=== PATIENT | male | born 1940 | race Caucasian/White ===

== ENCOUNTER 2017-09-16 17:11 | Inpatient (IN) | payer OTHER ==
--- OUTSIDE RECORDS SUMMARY | 2017-09-16 17:12 | XMS REPORT | Clinical Summary ---
:1940 Author Organization [facility] Address [address] [place] [address] Care Team Providers Name Role Phone Kamini Russ MD Primary Care Provider Allergies Not on File Current Medications Not on file Active Problems Not on file Encounters Date Type Specialty Care Team Description 10/02/2016 Hospital Encounter Radiology Jean Dugan Tremor MD 10/02/2016 Hospital Encounter Radiology Jean Dugan Tremor MD 10/02/2016 Ancillary Orders Radiology Jean Dugan Tremor MD 09/17/2016 Transcribe Orders Radiology Jean Dugan Tremor ( Primary Dx); Orthostatic hypotension after 09/15/2016 Social History Tobacco Use Types Packs/Day Years Used Date Never Assessed Sex Assigned at Date Recorded Not on file Last Filed Vital Signs Not on file Plan of Treatment Health Maintenance Due Date Last Done Comments SHINGRIX VACCINE (#1) 1989 ZOSTER VACCINE 1999 PNEUMOCOCCAL POLYSACCHARIDE VACCINE AGE 65 AND OVER 02/17/2004 PNEUMOCOCCAL-13 02/17/2004 INFLUENZA VACCINE 11/06/2017 Results NM Brain Spect W I 123 Datscan (10/02/2016 2:16 PM) Specimen Performing Laboratory [facility] [address] [place] [address] Narrative Procedure:NM BRAIN SPECT W I 123 DATSCAN Clinical History:R25.1 Tremorunspecified, Tremors, R25.1 TREMORS I95.1 ORTHESATINHYPERTENSION Technique: The patient was given 3 drops of Lugol's solution orally to protect the thyroid. The patient was then injected with 5 mCi of [id number] intravenously. SPECT imaging of the brain was performed approximately 4 hours later. Findings: There is moderately reduced uptake in the right putamen with borderline normal uptake in the left putamen. Uptake in the caudate is normal bilaterally. Impression: Abnormal DaTscan. 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 [facility]-[id number] Procedure Note [facility], Radiology Results Incoming - 10/02/2016 7:20 PM CDT Procedure: NM BRAIN SPECT W I 123 DATSCAN Clinical History: R25.1 Tremor unspecified, Tremors, R25.1 TREMORS I95.1 ORTHESATINHYPERTENSION Technique: The patient was given 3 drops of Lugol's solution orally to protect the thyroid. The patient was then injected with 5 mCi of [id number] intravenously. SPECT imaging of the brain was performed approximately 4 hours later. Findings: There is moderately reduced uptake in the right putamen with borderline normal uptake in the left putamen. Uptake in the caudate is normal bilaterally. Impression: Abnormal DaTscan. 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 [facility]-[id number] after 09/15/2016 Insurance Payer Benefit Plan / Group Subscriber ID Type Phone Address AETNA MEDICARE AETNA MEDICARE HMO/PPO [facility] xxxxxxxx O [phone] [id number]
[2017-09-16] MEDS ORDERED: IPRATROPIUM BROM 0.5MG/2.5ML ONE (18:19)
[2017-09-16] MEDS ORDERED: NA CHLORIDE 0.9% 50 ML IV ONE (18:20)
[2017-09-16] MEDS ORDERED: AZITHROMYCIN 500 MG/250 ML BAG ONE (18:20)
[2017-09-16] MEDS ORDERED: NA CHLORIDE 0.9% 1,000 ML ONE (18:20)
[2017-09-16] MEDS ORDERED: LEVALBUTEROL 1.25 MG/3 ML NEB ONE (18:20)
[2017-09-16] MEDS ORDERED: CEFTRIAXONE 1000 MG/VIAL ONE (18:20)
[2017-09-16 18:55] LABS: Absolute Lymphocytes (CBC) 0.6 K/uL (0.7-4.9); Absolute Monocytes 0.4 K/uL (0.1-1.3); Basophils % 0.2 % (0-1.3); Hematocrit 38.6 % (39.6-49.0); Lymphocytes % 5.6 % (15.3-44.8); MCH 31.7 pg (27.0-35.0); MCV 93.3 fL (80-100); MPV 7.9 fL (7.6-11.3); Monocytes % 3.8 % (3.3-12.3); Protime INR 1.33; RBC Red Blood Cell Count 4.14 M/uL (4.33-5.43)
--- NOTE | 2017-09-16 18:56 | ER ---
Nurse's Notes [facility] Name: Shaquille Mesa Age: 77 yrs Sex: Male : 1940 Arrival Date: 09/16/2017 Time: 17:17 Bed 28 Private MD: Diagnosis: Dyspnea;Chronic obstructive pulmonary disease with (acute) exacerbation;Weakness;Essential (primary) hypertension;Hypokalemia;Hypomagnesemia;Vomiting Presentation: 09/16 17:18 Presenting complaint: Patient states: Congestion and weakness, started today. mb3 Transition of care: [facility]. Onset of symptoms was September 16, 2017. Risk Assessment: Do you want to hurt yourself or someone else? Patient reports no desire to harm self or others. Initial Sepsis Screen: Does the patient meet any 2 criteria? No. Patient's initial sepsis screen is negative. Does the patient have a suspected source of infection? No. Patient's initial sepsis screen is negative. Care prior to arrival: IV initiated. 20 GA, in the left antecubital area, Glucose check: 126. 17:18 Method Of Arrival: EMS: [facility] mb3 17:18 Acuity: PRABHU 3 mb3 Triage Assessment: 17:26 General: Appears uncomfortable, ill, well groomed, Behavior is calm, cooperative, mb3 appropriate for age. Pain: Denies pain. EENT: Nares with drainage noted Reports nasal congestion since this morning nasal discharge that is watery. Neuro: Level of Consciousness is awake, alert, obeys commands, Oriented to person, place, time, situation, Appropriate for age Cane Flume Chute Operator are equal bilaterally Moves all extremities. Cardiovascular: Heart tones present Capillary refill < 3 seconds Patient's skin is warm and dry. Pulses are palpable in right radial artery, right dorsalis pedis artery, left radial artery and left dorsalis pedis artery. Respiratory: Reports cough that is productive, since this morning Airway is patent Respiratory effort is even, unlabored, Respiratory pattern is regular, symmetrical, Breath sounds are clear bilaterally. GI: Abdomen is flat, Bowel sounds present X 4 quads. Abd is soft and non tender. : Urine is clear. Historical: - Allergies: 17:23 No Known Allergies; mb3 - Home Meds: 17:56 atorvastatin 10 mg Oral tab 1 tab once daily [Active]; carbidopa-levodopa 25-250 mg mb3 oral tab 1 tab 4 times per day for Parkinsonism [Active]; clopidogrel 75 mg Oral tab 1 tab once daily [Active]; escitalopram oxalate 20 mg Oral tab 1 tab once daily [Active]; glimepiride 2 mg Oral tab 1 tab once daily [Active]; lamotrigine 100 mg Oral TbDL 1 tab 2 times per day [Active]; loratadine 10 mg Oral tab 1 tab once daily [Active]; metformin 1,000 mg Oral tab 1 tab 2 times per day [Active]; midodrine 5 mg oral tab 3 tabs 3 times per day [Active]; lactulose 10 gram/15 mL (15 mL) Oral soln 30 mL once daily [Active]; tamsulosin 0.4 mg Oral cp24 1 cap once daily [Active]; pramipexole 0.5 mg oral tab 1 tab 2 times per day [Active]; Super betga prostate w/vit D3, take 1 gelcap by mouth 2 times a day [Active]; bisacodyl 10 mg Rectal supp 1 suppository once daily as needed for Constipation [Active]; lactulose 10 gram/15 mL (15 mL) Oral soln 30 mL Every day as needed for constipation [Active]; lorazepam 0.5 mg Oral tab 1 tab 3 times per day for Anxiety [Active]; Tussin DM 10-100 mg/5 mL oral liqd 10 mL every 6 hours as needed for cough and congestion [Active]; - PMHx: 17:23 Asthma; Benign Prostatic Hypertrophy; Depression; Parkinsons; Diabetes - NIDDM; mb3 - Immunization history:: Adult Immunizations up to date. - Social history:: Smoking status: Patient/guardian denies using tobacco, the patient reports quitting approximately 3 years ago. - Ebola Screening: : Patient denies travel to an Ebola-affected area in the 21 days before illness onset No symptoms or risks identified at this time. - Family history:: not pertinent. Screenin:25 Abuse screen: Denies threats or abuse. Nutritional screening: No deficits noted. mb3 Tuberculosis screening: No symptoms or risk factors identified. Fall Risk No fall in past 12 months (0 pts). Secondary diagnosis (15 points) IV access (20 points). Ambulatory Aid- None/Bed Rest/Nurse Assist (0 pts). Gait- Impaired (20 pts.). Mental Status- Oriented to own ability (0 pts). Total Gurrola Fall Scale indicates High Risk Score (45 or more points). Fall prevention measures have been instituted. Side Rails Up X 2 Placed Close to Nursing Station Frequent Obs/Assessments Occuring As available patient and family educated on Fall Prevention Program and Strategies. Assessment: 17:50 Reassessment: see triage assessment. mb3 19:00 Reassessment: Patient and/or family updated on plan of care and expected duration. Pain mb3 level reassessed. Patient is alert, oriented x 3, equal unlabored respirations, skin warm/dry/pink. Patient states feeling better. Patient states symptoms have improved. 21:28 Reassessment: Patient appears in no apparent distress at this time. Patient and/or mb3 family updated on plan of care and expected duration. Pain level reassessed. Patient is alert, oriented x 3, equal unlabored respirations, skin warm/dry/pink. Patient states symptoms have improved. Vital Signs: 17:24 BP 181 / 104; Pulse 102; Resp 20; Temp 98.8; Pulse Ox 97% on R/A; Weight 102.06 kg; mb3 Height 6 ft. 4 in. (193.04 cm); Pain 0/10; 19:00 BP 161 / 82; Pulse 89; Resp 18; Pulse Ox 97% on R/A; mb3 21:22 BP 138 / 70; Pulse 83; Resp 18; Pulse Ox 97% on R/A; mb3 17:24 Body Mass Index 27.39 (102.06 kg, 193.04 cm) mb3 ED Course: 17:17 Patient arrived in ED. [facility] 17:17 Christopher Mejias, RN is Primary Nurse. mb3 17:21 Triage completed. mb3 17:25 Arm band placed on right wrist. mb3 17:26 Johan Nieto MD is Attending Physician. janusz 17:32 Patient has correct armband on for positive identification. Placed in gown. Bed in low mb3 position. Call light in reach. Side rails up X 1. cafeteria monitor on. Pulse ox on. NIBP on. 18:21 X-ray completed. Portable x-ray completed in exam room. Patient tolerated procedure ml well. 18:22 XRAY Chest (1 view) In Process Unspecified. EDMS 18:54 Chet Arriaga MD is Hospitalizing Provider. janusz 19:30 Notified ED physician of a critical lab result(s). total bili of 7.0 and mg of 1.4. fc 21:11 AMMONIA Sent. mb3 21:12 Hepatitis Panel Sent. mb3 21:26 No provider procedures requiring assistance completed. Patient admitted, IV remains in mb3 place. 21:56 [facility]. nj 21:57 CT completed. Patient tolerated procedure well. [facility] nj Administered Medications: 18:35 Drug: Xopenex 2.5 mg Route: Inhalation; mb3 21:12 Follow up: Response: No adverse reaction mb3 18:35 Drug: AtroVENT Aerosol 0.5 mg Route: Inhalation; mb3 21:12 Follow up: Response: No adverse reaction mb3 19:05 Drug: NS 0.9% 1000 ml Route: IV; Rate: 125 ml/hr; Site: left antecubital; mb3 21:13 Follow up: Response: No adverse reaction; IV Status: Infusion continued upon admission; mb3 IV Intake: 450ml 19:05 Drug: Rocephin - (cefTRIAXone) 1 grams Route: IVPB; Infused Over: 30 mins; Site: left mb3 antecubital; 21:13 Follow up: Response: No adverse reaction; IV Status: Completed infusion; IV Intake: [id number] 19:28 Drug: Zithromax 500 mg Route: IVPB; Infused Over: 1 hrs; Site: left antecubital; mb3 21:12 Follow up: Response: No adverse reaction; IV Status: Completed infusion; IV Intake: mb3 250ml 21:11 Drug: Zosyn 3.375 grams Route: IVPB; Infused Over: 60 mins; Site: left antecubital; mb3 Intake: 21:12 IV: 250ml; Total: 250ml. mb3 21:13 IV: 60ml; Total: 310ml. mb3 21:13 IV: 450ml; Total: 760ml. mb3 Outcome: 18:55 Decision to Hospitalize by Provider. janusz 21:26 Admitted to Tele accompanied by tech, via stretcher, room 423, with chart, Report mb3 called to Faye Fu RN 21:26 Condition: stable 21:26 Instructed on the need for admit. 23:18 Patient left the ED. mb3 Signatures: Dispatcher [employer] Johan Michelle MD MD cha Mickail, Joel, PA PA jmm Chretien, Felicia, RN RN fc Lopez, Melissa ml Jordan, Nathan nj Barnett, Mark, RN RN mb3
--- NOTE | 2017-09-16 18:57 | EDPHYS ---
Physician Documentation [facility] Name: Shaquille Mesa Age: 77 yrs Sex: Male : 1940 Arrival Date: 09/16/2017 Time: 17:17 Bed 28 Private MD: ED Physician Johan Nieto HPI: 09/16 18:07 This 77 yrs old Male presents to ER via EMS with complaints of Cough. janusz 18:07 The patient or guardian reports airway noise, cough. Onset: The symptoms/episode janusz began/occurred 2 day(s) ago. Severity of symptoms: At their worst the symptoms were mild, in the emergency department the symptoms are unchanged. Modifying factors: The symptoms are alleviated by nothing, the symptoms are aggravated by nothing. Associated signs and symptoms: Pertinent positives: nausea, rhinorrhea, sore throat. The patient has experienced similar episodes in the past, a few times. Historical: - Allergies: 17:23 No Known Allergies; mb3 - Home Meds: 17:56 atorvastatin 10 mg Oral tab 1 tab once daily [Active]; carbidopa-levodopa 25-250 mg mb3 oral tab 1 tab 4 times per day for Parkinsonism [Active]; clopidogrel 75 mg Oral tab 1 tab once daily [Active]; escitalopram oxalate 20 mg Oral tab 1 tab once daily [Active]; glimepiride 2 mg Oral tab 1 tab once daily [Active]; lamotrigine 100 mg Oral TbDL 1 tab 2 times per day [Active]; loratadine 10 mg Oral tab 1 tab once daily [Active]; metformin 1,000 mg Oral tab 1 tab 2 times per day [Active]; midodrine 5 mg oral tab 3 tabs 3 times per day [Active]; lactulose 10 gram/15 mL (15 mL) Oral soln 30 mL once daily [Active]; tamsulosin 0.4 mg Oral cp24 1 cap once daily [Active]; pramipexole 0.5 mg oral tab 1 tab 2 times per day [Active]; Super betga prostate w/vit D3, take 1 gelcap by mouth 2 times a day [Active]; bisacodyl 10 mg Rectal supp 1 suppository once daily as needed for Constipation [Active]; lactulose 10 gram/15 mL (15 mL) Oral soln 30 mL Every day as needed for constipation [Active]; lorazepam 0.5 mg Oral tab 1 tab 3 times per day for Anxiety [Active]; Tussin DM 10-100 mg/5 mL oral liqd 10 mL every 6 hours as needed for cough and congestion [Active]; - PMHx: 17:23 Asthma; Benign Prostatic Hypertrophy; Depression; Parkinsons; Diabetes - NIDDM; mb3 - Immunization history:: Adult Immunizations up to date. - Social history:: Smoking status: Patient/guardian denies using tobacco, the patient reports quitting approximately 3 years ago. - Ebola Screening: : Patient denies travel to an Ebola-affected area in the 21 days before illness onset No symptoms or risks identified at this time. - Family history:: not pertinent. ROS: 18:07 Constitutional: Negative for fever, chills, and weight loss, Eyes: Negative for injury, janusz pain, redness, and discharge, ENT: Negative for injury, pain, and discharge, Neck: Negative for injury, pain, and swelling, Cardiovascular: Negative for chest pain, palpitations, and edema, Abdomen/GI: Negative for abdominal pain, nausea, vomiting, diarrhea, and constipation, Back: Negative for injury and pain, : Negative for injury, bleeding, discharge, and swelling, MS/Extremity: Negative for injury and deformity, Skin: Negative for injury, rash, and discoloration, Neuro: Negative for headache, weakness, numbness, tingling, and seizure. 18:07 Respiratory: Positive for cough, wheezing, expiratory. Exam: 18:07 Constitutional: This is a well developed, well nourished patient who is awake, alert, janusz and in no acute distress. Head/Face: Normocephalic, atraumatic. Eyes: Pupils equal round and reactive to light, extra-ocular motions intact. Lids and lashes normal. Conjunctiva and sclera are non-icteric and not injected. Cornea within normal limits. Periorbital areas with no swelling, redness, or edema. ENT: Nares patent. No nasal discharge, no septal abnormalities noted. Tympanic membranes are normal and external auditory canals are clear. Oropharynx with no redness, swelling, or masses, exudates, or evidence of obstruction, uvula midline. Mucous membranes moist. Neck: Trachea midline, no thyromegaly or masses palpated, and no cervical lymphadenopathy. Supple, full range of motion without nuchal rigidity, or vertebral point tenderness. No Meningismus. Chest/axilla: Normal chest wall appearance and motion. Nontender with no deformity. No lesions are appreciated. Cardiovascular: Regular rate and rhythm with a normal S1 and S2. No gallops, murmurs, or rubs. Normal PMI, no JVD. No pulse deficits. Abdomen/GI: Soft, non-tender, with normal bowel sounds. No distension or tympany. No guarding or rebound. No evidence of tenderness throughout. Back: No spinal tenderness. No costovertebral tenderness. Full range of motion. Male : Normal genitalia with no discharge or lesions. Skin: Warm, dry with normal turgor. Normal color with no rashes, no lesions, and no evidence of cellulitis. 18:07 Respiratory: the patient does not display signs of respiratory distress, Respirations: no acute changes, Breath sounds: decreased breath sounds, rhonchi, wheezing: expiratory Vital Signs: 17:24 BP 181 / 104; Pulse 102; Resp 20; Temp 98.8; Pulse Ox 97% on R/A; Weight 102.06 kg; 3 Height 6 ft. 4 in. (193.04 cm); Pain 0/10; 19:00 BP 161 / 82; Pulse 89; Resp 18; Pulse Ox 97% on R/A; mb3 21:22 BP 138 / 70; Pulse 83; Resp 18; Pulse Ox 97% on R/A; mb3 17:24 Body Mass Index 27.39 (102.06 kg, 193.04 cm) [facility] MDM: 17:26 Patient medically screened. [facility] 18:11 Data reviewed: vital signs, nurses notes, lab test result(s), EKG, radiologic studies. [facility] 09/16 18:06 Order name: Basic Metabolic Panel; Complete Time: 19:34 [facility] 09/16 18:06 Order name: BNP; Complete Time: 19:16 [facility] 09/16 18:06 Order name: CBC with Diff; Complete Time: 19:31 [facility] 09/16 18:06 Order name: Ckmb; Complete Time: 19:34 [facility] 09/16 18:06 Order name: CPK; Complete Time: 19:34 [facility] 09/16 18:06 Order name: LFT's; Complete Time: 19:34 [facility] 09/16 18:06 Order name: Magnesium; Complete Time: 19:34 [facility] 09/16 18:06 Order name: PT-INR; Complete Time: 19:16 [facility] 09/16 18:06 Order name: Ptt, Activated; Complete Time: 19:16 [facility] 09/16 18:06 Order name: Troponin (emerg Dept Use Only); Complete Time: 19:16 [facility] 09/16 18:06 Order name: Blood Culture Adult (2) [facility] 09/16 18:06 Order name: Lipase; Complete Time: 19:34 [facility] 09/16 18:06 Order name: Procalcitonin; Complete Time: 19:34 [facility] 09/16 18:06 Order name: Flu; Complete Time: 19:16 [facility] 09/16 18:06 Order name: XRAY Chest (1 view) [facility] 09/16 18:06 Order name: Urine Culture [facility] 09/16 18:57 Order name: Urine Dipstick--Ancillary (enter results); Complete Time: 19:16 09/16 18:57 Order name: CBC Smear Scan; Complete Time: 19:31 [facility] 09/16 19:33 Order name: US Abdomen Limited [facility] 09/16 19:33 Order name: CT Abd/Pelvis - W/Contrast [facility] 09/16 19:33 Order name: Hepatitis Panel [facility] 09/16 19:34 Order name: AMMONIA [facility] 09/16 21:14 Order name: US [facility] 09/16 21:35 Order name: Ammonia [facility] 09/16 22:35 Order name: CT [facility] 09/16 22:58 Order name: Glucose, Ancillary Testing [facility] 09/16 18:06 Order name: EKG; Complete Time: 18:06 [facility] 09/16 18:06 Order name: Cardiac monitoring; Complete Time: 19:31 [facility] 09/16 18:06 Order name: EKG - Nurse/Tech; Complete Time: 19:31 [facility] 09/16 18:06 Order name: IV Saline Lock; Complete Time: 19:31 [facility] 09/16 18:06 Order name: Labs collected and sent; Complete Time: 19:31 [facility] 09/16 18:06 Order name: O2 Per Protocol; Complete Time: 19:31 [facility] 09/16 18:06 Order name: O2 Sat Monitoring; Complete Time: 19:30 [facility] 09/16 18:06 Order name: Urine Dipstick-Ancillary (obtain specimen); Complete Time: 19:30 [facility] Administered Medications: 18:35 Drug: Xopenex 2.5 mg Route: Inhalation; mb3 21:12 Follow up: Response: No adverse reaction mb3 18:35 Drug: AtroVENT Aerosol 0.5 mg Route: Inhalation; mb3 21:12 Follow up: Response: No adverse reaction mb3 19:05 Drug: NS 0.9% 1000 ml Route: IV; Rate: 125 ml/hr; Site: left antecubital; mb3 21:13 Follow up: Response: No adverse reaction; IV Status: Infusion continued upon admission; mb3 IV Intake: 450ml 19:05 Drug: Rocephin - (cefTRIAXone) 1 grams Route: IVPB; Infused Over: 30 mins; Site: left mb3 antecubital; 21:13 Follow up: Response: No adverse reaction; IV Status: Completed infusion; IV Intake: [id number] 19:28 Drug: Zithromax 500 mg Route: IVPB; Infused Over: 1 hrs; Site: left antecubital; mb3 21:12 Follow up: Response: No adverse reaction; IV Status: Completed infusion; IV Intake: mb3 250ml 21:11 Drug: Zosyn 3.375 grams Route: IVPB; Infused Over: 60 mins; Site: left antecubital; mb3 Disposition: 09/16/17 18:55 Hospitalization ordered by Chet Arriaga for Observation. Preliminary diagnosis are Dyspnea, Chronic obstructive pulmonary disease with (acute) exacerbation, Weakness, Essential (primary) hypertension, Hypokalemia, Hypomagnesemia, Vomiting. - Bed requested for Telemetry/MedSurg (observation). - Status is Observation. mb3 - Condition is Fair. - Problem is new. - Symptoms have improved. UTI on Admission? No Signatures: Dispatcher [employer] Amber Small RN RN dw Anderson, Corey, MD MD cha Barnett, Mark RN RN mb3 Corrections: (The following items were deleted from the chart) 19:18 18:55 Hospitalization Ordered by Chet Arriaga MD for Observation. Preliminary janusz diagnosis is Dyspnea; Chronic obstructive pulmonary disease with (acute) exacerbation; Weakness. Bed requested for Telemetry/MedSurg (observation). Status is Observation. Condition is Fair. Problem is new. Symptoms have improved. UTI on Admission? No. janusz 19:35 19:18 09/16/2017 18:55 Hospitalization Ordered by Chet Arriaga MD for Observation. janusz Preliminary diagnosis is Dyspnea; Chronic obstructive pulmonary disease with (acute) exacerbation; Weakness; Essential (primary) hypertension; Hypokalemia. Bed requested for Telemetry/MedSurg (observation). Status is Observation. Condition is Fair. Problem is new. Symptoms have improved. UTI on Admission? No. janusz 19:36 19:35 09/16/2017 18:55 Hospitalization Ordered by Chet Arriaga MD for Observation. janusz Preliminary diagnosis is Dyspnea; Chronic obstructive pulmonary disease with (acute) exacerbation; Weakness; Essential (primary) hypertension; Hypokalemia; Hypomagnesemia. Bed requested for Telemetry/MedSurg (observation). Status is Observation. Condition is Fair. Problem is new. Symptoms have improved. UTI on Admission? No. [facility] 19:37 19:36 09/16/2017 18:55 Hospitalization Ordered by Chet Arriaga MD for Observation. dw Preliminary diagnosis is Dyspnea; Chronic obstructive pulmonary disease with (acute) exacerbation; Weakness; Essential (primary) hypertension; Hypokalemia; Hypomagnesemia; Vomiting. Bed requested for Telemetry/MedSurg (observation). Status is Observation. Condition is Fair. Problem is new. Symptoms have improved. UTI on Admission? No. [facility] 23:18 19:37 09/16/2017 18:55 Hospitalization Ordered by Chet Arriaga MD for Observation. mb3 Preliminary diagnosis is Dyspnea; Chronic obstructive pulmonary disease with (acute) exacerbation; Weakness; Essential (primary) hypertension; Hypokalemia; Hypomagnesemia; Vomiting. Bed requested for Telemetry/MedSurg (observation). Status is Observation. Condition is Fair. Problem is new. Symptoms have improved. UTI on Admission? No. dw
[2017-09-16] MEDS ORDERED: D50W 25 GM/50 ML SYRINGE IV PRN (18:58)
[2017-09-16] MEDS ORDERED: GLUCAGON 1 MG/VIAL IM PRN (18:58)
[2017-09-16 19:00] LABS: Urine Blood NEGATIVE (NEG); Urine Glucose NEGATIVE (NEG); Urine Protein 2+ (NEG); Urine Specific Gravity 1.025 (1.005-1.030); Urine pH 5.5 (5.0-7.0)
[2017-09-16 19:04] LABS: Bicarbonate 22 mEq/L (21-31); Glucose Level 132 mg/dL (65-120); Lipase 21 U/L (22-51); Potassium 3.4 mEq/L (3.6-5.0); Sodium Level 136 mEq/L (135-145)
[2017-09-16 19:12] LABS: ALT/SGPT 28 IU/L (10-60); AST/SGOT 208 IU/L (10-42); Albumin 4.3 g/dL (3.2-5.5); Alkaline Phosphatase 107 IU/L (42-121); BUN Blood Urea Nitrogen 16 mg/dL (6-20); CKMB Creatine Kinase MB 3.5 ng/ml (0.3-4.0); Creatine Phosphokinase 125 IU/L (22-269); Protein, Total 7.3 g/dL (6.0-8.3)
[2017-09-16 19:20] LABS: Blood Morphology Comment NOT SEEN (NOT SEEN); Platelet Estimate ADEQ; Urine White Blood Cell Casts OK
[2017-09-16 19:31] LABS: Magnesium 1.4 mg/dL (1.8-2.5)
--- NOTE | 2017-09-16 19:46 | P.HP ---
Certification for Inpatient Patient admitted to: Inpatient With expected LOS: >2 Midnights Practitioner: I am a practitioner with admitting privileges, knowledge of patient current condition, hospital course, and medical plan of care. Services: Services provided to patient in accordance with Admission requirements found in Title 42 Section 412.3 of the Code of Federal Regulations Patient History Date of Service: 09/16/17 Reason for admission: nuasea and vomiting History of Present Illness: Mr Mesa is a 77 years old male with history of DM II, Parkinson's disease, Asthma, BPH who start complainin of productive cough since 2 weeks ago with clear secretions. He denied SOB, fever or chills. This morning he start with nausea and vomiting. He also had mild diffuse abdominal pain. In ER The patient was not in distress, afebrile. Lab work was remarkable for leukocytosis with elevated procalcitonin. Bilirubin was significantly elevated 7.0 with direct bili predominance, AST elevated as well. Allergies No Known Allergies Allergy (Verified 03/11/14 08:55) Home Medications: Clopidogrel Bisulfate [Clopidogrel] 75 mg PO DAILY 03/11/14 Escitalopram [Lexapro*] 20 mg PO DAILY 03/11/14 Lamotrigine [Lamictal] 100 mg PO BID 03/11/14 Acetaminophen with Codeine [Acetaminophen-Cod #3 Tablet] 1 each PO Q6HP PRN Atorvastatin Calcium [Lipitor*] 10 mg PO BEDTIME 08/31/16 Lactulose 20 gm PO DAILYPRN PRN 08/31/16 Loratadine [Claritin*] 10 mg PO DAILY 08/31/16 Metformin HCl [Metformin HCl ER] 1,000 mg PO BID 08/31/16 Metoprolol Tartrate [Lopressor*] 25 mg PO BEDTIME 08/31/16 Midodrine HCl 10 mg PO TID 08/31/16 Polyethyl Gly 3350 [Glycolax*] 17 gm PO SEECOM 08/31/16 Primidone [Mysoline *] 150 mg PO BID 08/31/16 Super Beta Prostate W/Vit D3 1 cap PO BID 08/31/16 Tamsulosin HCl [Flomax] 0.4 mg PO BEDTIME 08/31/16 Carbidopa/Levodopa 25-100 [Sinemet 25-100*] 1 tab PO DAILY tab 09/01/16 Topiramate [Topamax*] 25 mg PO BEDTIME #30 tab 09/01/16 - Past Medical/Surgical History Diabetic: Yes -: orthostatic hypotension -: recurrent syncope Past Surgical History: Reviewed- Non-Contributory - Family History Father -: GI disease - Social History Smoking Status: Former smoker Alcohol use: No CD- Drugs: No Caffeine use: Yes Place of Residence: Skilled Nursing Review of Systems 10-point ROS is otherwise unremarkable Physical Examination - Physical Exam General: Alert, In no apparent distress HEENT: Atraumatic, PERRLA, Mucous membr. moist/pink, EOMI, Sclerae nonicteric Neck: Supple, 2+ carotid pulse no bruit, No LAD, Without JVD or thyroid abnormality Respiratory: Clear to auscultation bilaterally, Diminished Cardiovascular: Regular rate/rhythm, Normal S1 S2 Gastrointestinal: Normal bowel sounds, No tenderness Musculoskeletal: No tenderness Integumentary: No rashes Neurological: Normal speech, Normal strength at 5/5 x4 extr, Normal tone, Normal affect, Other (uper extremity with resting tremors.) Lymphatics: No axilla or inguinal lymphadenopathy - Studies Laboratory Data (last 24 hrs) 09/16/17 18:35: PT 15.7 H, INR 1.33, APTT 27.0 09/16/17 18:35: WBC 11.1 H, Hgb 13.1 L, Hct 38.6 L, Plt Count 127 L 09/16/17 18:35: B-Natriuretic Peptide 164 H 09/16/17 18:35: Sodium 136, Potassium 3.4 L, BUN 16, Creatinine 0.70, Glucose 132 H, Magnesium 1.4 L*, Total Bilirubin 7.0 H*, AST 208 H, ALT 28, Alkaline Phosphatase 107, Lipase 21 L Microbiology Data (last 24 hrs): 09/16/17 18:43 Nasopharnyx Influenza Type A Antigen Screen - Final 09/16/17 18:43 Nasopharnyx Influenza Type B Antigen Screen - Final Assessment and Plan - Problems (Diagnosis) (1) Sepsis Current Visit: Yes Status: Acute Qualifiers: Sepsis type: sepsis due to unspecified organism Qualified Code(s): A41.9 - Sepsis, unspecified organism (2) Abnormal liver enzymes Current Visit: Yes Status: Acute (3) Diabetes mellitus Current Visit: Yes Status: Acute Qualifiers: Diabetes mellitus type: type 2 Diabetes mellitus fci insulin use: without fci use Diabetes mellitus complication status: with unspecified complications Qualified Code(s): E11.8 - Type 2 diabetes mellitus with unspecified complications (4) Hypomagnesemia Current Visit: Yes Status: Acute - Plan Mr Mesa will be admitted to the hospital due to sepsis, possible secondary to biliary tree obstruction. He has leukocytosis, elevated procalcitonin and is tachycardic. Abd US is pending. Will start empiric Cipro and Flagyl treatment. Keep NPO, eventually consult surgery and GI specialist, depending on US results. - Advance Directives Does patient have a Living Will: Yes Does patient have a Durable POA for Healthcare: Yes - Code Status/Comfort Care Code Status Assessed: Yes Code Status: Full Code
--- NOTE | 2017-09-16 20:01 | RAD REPORT ---
EXAM DESCRIPTION: RAD - Chest Single View - 09/16/2017 6:21 pm CLINICAL HISTORY: Cough and congestion, weakness COMPARISON: January 2017 TECHNIQUE: AP portable chest image was obtained 1817 hours . FINDINGS: Lungs are clear. Lung markings are similar to prior imaging. Heart and vasculature are nor mal. No measurable pleural effusion and no pneumothorax. No gross bony abnormality seen. No acute aor tic findings suspected. IMPRESSION: No acute cardiopulmonary process. No significant interval change.
[2017-09-16] MEDS ORDERED: INSULIN -REGULAR HUMAN 50 UNIT/0.5 ML ML SQ SCH (21:00)
[2017-09-16] MEDS ORDERED: PIPER/TAZO/NS 3.375gm 3.375 GM/100 ML BAG ONE (21:02)
--- NOTE | 2017-09-16 21:14 | RAD REPORT ---
EXAM DESCRIPTION: US - Abdomen Exam Limited - 09/16/2017 8:29 pm CLINICAL HISTORY: Abdominal pain COMPARISON: CT study October 2015 FINDINGS: Gallbladder is distended. Small stones and sludge are identifiable. Wall appears mildly th ickened as it well. No pericholecystic fluid. No common duct stone or biliary tree dilatation identified. IMPRESSION: Stones and sludge are identifiable with mild gallbladder wall thickening. No biliary tree abnormality.
[2017-09-16] MEDS ORDERED: ACETAMINOPHEN 500 MG TAB PO PRN (22:29)
[2017-09-16] MEDS ORDERED: IPRATROPIUM BROM 0.5MG/2.5ML NEB PRN (22:29)
[2017-09-16] MEDS ORDERED: ALBUTEROL 2.5 MG/3 ML NEB SOL NEB PRN (22:29)
[2017-09-16] MEDS ORDERED: ONDANSETRON 4 MG/2 ML VIAL IV PRN (22:29)
--- NOTE | 2017-09-16 22:34 | RAD REPORT ---
EXAM DESCRIPTION: CT - Abdomen Pelvis W Contrast - 09/16/2017 9:59 pm CLINICAL HISTORY: Abdominal pain, irritable bowel history, lymphocytic leukemia history COMPARISON: CT study October 2015 TECHNIQUE: Biphasic, helical CT imaging of the abdomen and pelvis was performed following 100 ml non -ionic IV contrast. Oral contrast was given. All CT scans are performed using dose optimization technique as appropriate and may include automated exposure control or mA/KV adjustment according to patient size. FINDINGS: Fibrotic stranding or atelectasis in each base. No infiltrate or pleural effusion. No jia cardial effusion. Liver shows borderline fatty infiltration. Liver capsule is mildly nodular. No focal liver lesion. No acute spleen pancreas process. Numerous small gallstones are present. Gallbladder wall is borderline . No biliary tree dilatation. Symmetric renal function is seen with no hydronephrosis or suspicious renal mass. No pyelonephritis o r acute renal parenchymal process. No gastric dilatation or wall thickening. No small bowel abnormality. The appendix is unremarkable. Large amount of stool dilates the rectum. Tortuous and redundant sigmoid colon extends well into the upper right abdomen. Ye of the transverse and descending colon are mildly prominent but clear of a ny measurable stool content. No free air, free fluid or inflammatory stranding. No mass or bulky lymphadenopathy. Fat filled umbi lical hernia is present with no acute component. The urinary bladder is without significant finding. No adrenal abnormality. Significantly enlarged prostate gland is present. Disc and bony degenerative changes are present. IMPRESSION: No obstruction, free air or surgically emergent finding. Large amount of stool dilates the rectum. Ye of the transverse and descending colon are mildly pro minent and could indicate a nonspecific, mild colitis. Marked prostatic enlargement. No urinary bladder wall thickening and no urine retention. Cholelithiasis. Gallbladder wall is upper normal. Cholecystitis is not not excluded but needs matchin g clinical presentation. No biliary tree dilatation.
[2017-09-16] MEDS: INSULIN -REGULAR HUMAN 50 UNIT/0.5 ML ML SQ SCH (23:02)
[2017-09-16] MEDS: NA CHLORIDE 0.9% 1,000 ML IV SCH (23:26)
[2017-09-17 00:34] VITALS: BMI 27.4
[2017-09-17] MEDS: METRONIDAZOLE 500mg IVPB 500 MG/100 ML BAG IV SCH ×2 (00:56→09:50)
[2017-09-17] MEDS ORDERED: CIPROFLOXACIN 400mg IV 400 MG/200 ML BAG IV SCH (01:00)
[2017-09-17] MEDS ORDERED: Magnesium Sulfate 2gm IVPB 2 G/50 ML BAG IV ONE (01:54)
[2017-09-17] MEDS: KCL 20 MEQ/100 mL IVPB 20 MEQ/100 ML BAG IV SCH ×2 (02:50→06:03)
[2017-09-17] MEDS: INSULIN -REGULAR HUMAN 50 UNIT/0.5 ML ML SQ SCH ×4 (06:00→21:00)
[2017-09-17 06:30] LABS: Absolute Lymphocytes (CBC) 0.4 K/uL (0.7-4.9); Absolute Monocytes 0.2 K/uL (0.1-1.3); Absolute Neutrophil 7.6 K/uL (1.8-8.0); Eosinophils % 0.1 % (0-4.4); Hematocrit 35.7 % (39.6-49.0); Lymphocytes % 4.9 % (15.3-44.8); MCH 32.1 pg (27.0-35.0); MCV 93.5 fL (80-100); MPV 7.8 fL (7.6-11.3); Monocytes % 2.9 % (3.3-12.3); RBC Red Blood Cell Count 3.82 M/uL (4.33-5.43)
[2017-09-17 06:47] LABS: ALT/SGPT 147 IU/L (10-60); AST/SGOT 129 IU/L (10-42); Albumin 3.6 g/dL (3.2-5.5); Alkaline Phosphatase 89 IU/L (42-121); BUN Blood Urea Nitrogen 17 mg/dL (6-20); Bicarbonate 24 mEq/L (21-31); Glucose Level 118 mg/dL (65-120); Sodium Level 141 mEq/L (135-145)
[2017-09-17 06:48] LABS: Bilirubin Total 5.5 mg/dL (0.3-1.2)
[2017-09-17] MEDS: NA CHLORIDE 0.9% 1,000 ML IV SCH ×2 (08:29→17:19)
[2017-09-17 08:51] LABS: Platelet Estimate DECR; Toxic Granulation PRESENT
[2017-09-17 08:52] LABS: Blood Morphology Comment NOT SEEN (NOT SEEN)
[2017-09-17] MEDS ORDERED: PRAMIPEXOLE DI HCL 0.5 MG PO SCH (09:28)
[2017-09-17] MEDS ORDERED: LORAZEPAM 0.5 MG TABLET PO PRN (09:28)
[2017-09-17] MEDS ORDERED: guaiFENesin 100 MG/5 ML UCUP PO PRN (09:28)
[2017-09-17] MEDS ORDERED: BISACODYL 10 MG RECTAL SUPP PR PRN (09:28)
[2017-09-17] MEDS: ACYCLOVIR TOP SCH (09:28)
[2017-09-17] MEDS ORDERED: GLUCAGON 1 MG/VIAL IM PRN (09:33)
[2017-09-17] MEDS ORDERED: D50W 25 GM/50 ML SYRINGE IV PRN (09:33)
[2017-09-17] MEDS: CLOPIDOGREL 75 MG TABLET PO SCH (10:07)
[2017-09-17] MEDS: LORATADINE 10 MG TAB PO SCH (10:07)
[2017-09-17] MEDS: ESCITALOPRAM 20 MG TAB PO SCH (10:07)
[2017-09-17] MEDS: lamoTRIgine 100 MG TAB PO SCH ×2 (10:31→21:17)
[2017-09-17] MEDS: FLUDROCORTISONE 0.1 MG TAB PO SCH (10:32)
[2017-09-17] MEDS ORDERED: CEFEPIME 2 GM in NA CHLORIDE 0.9% 100 ML IV SCH (11:00)
[2017-09-17] MEDS ORDERED: LACTULOSE 20 GM/30 ML UCUP PO PRN (11:00)
--- NOTE | 2017-09-17 11:30 | CON ---
Date of Consultation: 09/17/2017 Brief History Of Present Illness: The patient is a 77-year-old male, who presents with cou gh and weakness and fatigue beginning approximately 2 days ago. He states that he had decreased appe tite, decreased strength, and just general malaise and fatigue, which got worse to the point where he could no longer eat. He states he lost all of his appetite. He as such was transferred to the hosp [facility] with the above-stated complaints. He denies any abdominal pain now throughout this issue. He h as had some mild nausea, sore throat, and has had multiple episodes before in the past beginning 5 ye ars ago and he has had multiple similar episodes. He states that they are usually resolved with a ort hospitalization, some IV fluids and some antibiotics, and he generally gets better. He does have a history of gallstones and has not had any recommendation for surgery with this above-stated histor y. Past Medical History: Significant for asthma, BPH, depression, Parkinson, diabetes. Allergies: NO KNOWN DRUG ALLERGIES. Medications: At home include atorvastatin, carbidopa/levodopa, Plavix, escitalopram, glimepiride, la motrigine, loratadine, metformin, midodrine, lactulose, tamsulosin, pramipexole, Super Beta Prostate, , lactulose. Social History: He quit tobacco 3 years ago. He denies recreational drug use. Review of Systems: A 10-point review of systems other than HPI, denies. Physical Examination: Vital Signs: At the time of my examination, his BMI is 27.5. His vital signs are blood pressure 114 /62, pulse is 90, respiratory rate 20, temperature 98.8. General: He is awake, alert, and oriented x3. Psychiatric: He is appropriate and conversive. He answers questions appropriately and has good insi ght into his medical history. HEENT: Normocephalic. His sclerae are anicteric. His mucous membranes moist. His oropharynx is cl ear. Neck: Supple. No JVD. Chest: Normal expansion and excursion. Abdomen: Soft, nontender, and nondistended. No rebound. No guarding. No focal peritonitis. He almeida s an umbilical hernia, which is reducible, nontender. Extremities: No clubbing, cyanosis, or edema. Skin: Warm and dry. Laboratory Data: Reveals a white blood count 8.2, hemoglobin 12.2, hematocrit 35.7, platelet count i s 93. His bands are 14. His sodium 141, potassium 3.0, chloride 104, carbon dioxide 24, BUN 17, cre atinine 0.7, glucose is 118. His total bilirubin is 5.5. His magnesium on admission was 1.4. His d irect component was 4.0, AST is 129, ALT is 147. His alk phos is 89. Procalcitonin was 13.59 on adm ission. BNP 164. UA showed 2+ protein, 3+ ketones, otherwise negative. He had imaging performed, w hich included a chest x-ray which was officially read as no acute cardiopulmonary processes. He had an abdominal ultrasound performed as well, which was officially read as stones and sludge are identif iable with mild gallbladder wall thickening. No biliary tree abnormality. No pericholecystic fluid. No common duct stone or biliary tree abnormality identified. Abdomen and pelvis CT was also perfor med, which was officially read as no obstruction or free air or surgically emergent finding, large am ount of stool dilated the rectum. The transverse and descending colons are mildly prominent, could i ndicate nonspecific mild colitis. Mild prostatic enlargement. No bowel wall thickening or urine ret ention. Cholelithiasis. Gallbladder wall is upper normal. Cholecystitis is not excluded, but needs matching clinical presentation. No biliary tree abnormality. Assessment And Plan: 1.This is a 77-year-old male, who presents with weakness and fatigue and malaise. He does not have any abdominal pain and as such seems unlikely to have a diagnosis of cholecystitis despite his LFTs b eing elevated. This could be multifactorial or perhaps this could be multifactorial. 2.I do not find that the patient has a surgically emergent finding at this time and with his history of gallstones, I recommend medical treatment at this time to see if he improves; however, given his clinical picture, he does not have indications for surgery at this time; however, should he developed worse abnormalities or new onset symptoms of abdominal pain, did indicate a cholecystitis type pictu re or choledocholithiasis, I would recommend MRCP/ERCP, prior surgical intervention should new abnorm alities emerge. However, I recommend continue medical management as described above. Thank you for this interesting consult. ROGER/IRINA Voice ID: [id number] Report ID: [id number]
[2017-09-17] MEDS: GENTAMICIN IV SCH ×2 (12:06→17:18)
[2017-09-17] MEDS: NA CHLORIDE 0.9% IV SCH ×2 (12:06→17:18)
[2017-09-17] MEDS: CEFEPIME/SWI 2gm 2 GM/20 ML SYR IV SCH ×2 (12:06→17:19)
[2017-09-17] MEDS: CARBIDOPA/LEVODOPA 25/100 TAB PO SCH ×3 (13:19→21:17)
[2017-09-17] MEDS: MIDODRINE HCL 5 MG TABLET PO SCH ×2 (13:20→21:17)
[2017-09-17] MEDS: CARBIDOPA/LEVODOPA 25/250 TAB PO SCH ×3 (13:23→21:17)
[2017-09-17] MEDS ORDERED: POTASSIUM CL SA 10 MEQ TAB PO ONE (15:00)
--- NOTE | 2017-09-17 15:21 | PN ---
Date of Progress Note: 09/17/2017 Subjective: The patient seen and examined, chart reviewed, and case discussed with RN and Dr. Rosio fisher and Dr. Coffman. The patient denies any abdominal pain. He has some nausea, but no vomiting. Sadiq osorio is doing better. Review of Systems: Negative except as above. Medications: Reviewed. Physical Examination: Vital Signs: Temperature 98.8, heart rate 90, blood pressure 114/62, O2 saturation 95% on room air. General: Awake, alert, oriented x3, some mild distress. Elderly male, ill-appearing. CV: S1 and S2. No murmurs. Regular rate and rhythm. Peripheral pulses present. Respiratory: Moving air well bilaterally. No wheezing. Gastrointestinal: Abdomen is soft, nontender, nondistended. Positive bowel sounds. No guarding or rigidity. Extremities: No clubbing, cyanosis or edema. Neurologic: Nonfocal. Laboratory Data: Sodium 141, potassium 3, chloride 104, CO2 24, BUN 17, creatinine 0.71, glucose 118 , calcium 8.7, total bilirubin 5.5, AST 129, ALT 147, alkaline phosphatase 89. WBC 8.2, H and H 12.2 , 35.7, platelets 93, neutrophils 92.1, bands 14. Blood culture preliminarily show gram-negative tunde s. Urine cultures pending. Assessment And Plan: A 77-year-old male with: 1.Sepsis secondary to gram-negative bacteremia. We will continue with IV antibiotics. We will tren d procalcitonin. Continue IV fluids. Follow up on ID and sensitivity and urine cultures. 2.Gram-negative bacteremia, gram-negative rods. ID and sensitivities pending. We will continue wit h IV antibiotics and followup. 3.Elevated liver enzymes, improving. 4.Elevated total bilirubin. The patient does have gallstones with some sludge, however, no biliary tract dilatation. Spoke with Dr. Kevin and Dr. Coffman. No surgical intervention at this time. We will obtain MRCP and GI consultation. 5.Diabetes mellitus type 2 with long-term use of insulin with hyperglycemia. We will continue slidi ng scale insulin and Accu-Chek. 6.Hypomagnesemia. We will replace and monitor. 7.Hypokalemia. We will replace and monitor. 8.Thrombocytopenia. 9.Gastrointestinal and deep venous thrombosis prophylaxis, PPI and SCDs due to thrombocytopenia. Plan: Follow up with the MRCP result and GI recommendations. UQAN Voice ID: [id number] Report ID: [id number]
--- NOTE | 2017-09-17 15:45 | RAD REPORT ---
EXAM DESCRIPTION: MRIAbdomen (Gallbladder) CLINICAL HISTORY: Abdominal pain COMPARISON: CT 09/16/2017, ultrasound 09/16/2017 FINDINGS: The intrahepatic and extrahepatic biliary trees do not appear significantly dilated. No co mmon bile duct stone is seen. Cholelithiasis is present with mild thickening of the gallbladder wall suspected. No bulky adenopathy, free fluid or abscess in the abdomen. No bowel obstruction suspected. IMPRESSION: Cholelithiasis with mild gallbladder wall thickening. No intrahepatic or extrahepatic biliary tree dilatation suspected. No common bile duct stone suspecte d.
[2017-09-17] MEDS: PRAMIPEXOLE 0.25 MG TAB PO SCH (21:17)
[2017-09-17] MEDS: ATORVASTATIN 10 MG TAB PO SCH (21:17)
[2017-09-17] MEDS: TAMSULOSIN 0.4 MG SR CAP PO SCH (21:17)
[2017-09-18] MEDS: GENTAMICIN IV SCH ×3 (01:02→16:34)
[2017-09-18] MEDS: NA CHLORIDE 0.9% IV SCH ×3 (01:02→16:34)
[2017-09-18] MEDS: CEFEPIME/SWI 2gm 2 GM/20 ML SYR IV SCH ×3 (01:03→18:23)
[2017-09-18] MEDS: NA CHLORIDE 0.9% 1,000 ML IV SCH ×2 (05:07→14:36)
[2017-09-18 06:36] LABS: Absolute Lymphocytes (CBC) 0.5 K/uL (0.7-4.9); Absolute Monocytes 0.2 K/uL (0.1-1.3); Basophils % 0.2 % (0-1.3); Eosinophils % 0.9 % (0-4.4); Hematocrit 34.6 % (39.6-49.0); Lymphocytes % 7.5 % (15.3-44.8); MCH 31.7 pg (27.0-35.0); MCV 93.1 fL (80-100); MPV 8.9 fL (7.6-11.3); Monocytes % 2.9 % (3.3-12.3); RBC Red Blood Cell Count 3.71 M/uL (4.33-5.43)
[2017-09-18] MEDS: INSULIN -REGULAR HUMAN 50 UNIT/0.5 ML ML SQ SCH ×4 (07:30→21:00)
[2017-09-18 07:54] LABS: ALT/SGPT 20 IU/L (10-60); AST/SGOT 59 IU/L (10-42); Albumin 3.3 g/dL (3.2-5.5); Alkaline Phosphatase 78 IU/L (42-121); BUN Blood Urea Nitrogen 15 mg/dL (6-20); Bicarbonate 27 mEq/L (21-31); Bilirubin Total 3.5 mg/dL (0.3-1.2); Ferritin 209.8 ng/ml (23.9-336.2); Glucose Level 116 mg/dL (65-120); Magnesium 1.7 mg/dL (1.8-2.5); Potassium 3.4 mEq/L (3.6-5.0); Protein, Total 5.5 g/dL (6.0-8.3); Sodium Level 141 mEq/L (135-145)
[2017-09-18] MEDS ORDERED: Magnesium Sulfate 2gm IVPB 2 G/50 ML BAG IV ONE (08:07)
[2017-09-18] MEDS ORDERED: POTASSIUM 25 MEQ EFFERV TAB PO ONE ×2 (08:10→21:13)
[2017-09-18 08:56] LABS: BUN Blood Urea Nitrogen 15 mg/dL (6-20); Bicarbonate 28 mEq/L (21-31); Glucose Level 128 mg/dL (65-120); Potassium 3.3 mEq/L (3.6-5.0); Sodium Level 140 mEq/L (135-145)
[2017-09-18] MEDS: CARBIDOPA/LEVODOPA 25/100 TAB PO SCH ×4 (09:00→21:50)
[2017-09-18] MEDS: MIDODRINE HCL 5 MG TABLET PO SCH ×3 (09:00→21:52)
[2017-09-18] MEDS: GLIMEPIRIDE 2 MG TABLET PO SCH (09:00)
[2017-09-18] MEDS: CARBIDOPA/LEVODOPA 25/250 TAB PO SCH ×4 (09:00→21:50)
[2017-09-18] MEDS: LORATADINE 10 MG TAB PO SCH (09:00)
[2017-09-18] MEDS: lamoTRIgine 100 MG TAB PO SCH ×2 (09:00→21:51)
[2017-09-18] MEDS: ACYCLOVIR TOP SCH (09:00)
[2017-09-18] MEDS: FLUDROCORTISONE 0.1 MG TAB PO SCH (09:00)
[2017-09-18] MEDS ORDERED: POLYETHYL GLY 3350 17 GM/DOSE PO SCH (09:00)
[2017-09-18] MEDS: ESCITALOPRAM 20 MG TAB PO SCH (09:00)
[2017-09-18] MEDS: CLOPIDOGREL 75 MG TABLET PO SCH (09:02)
[2017-09-18] MEDS ORDERED: MAGNESIUM SULFATE 1 gm IVPB 1 GM/100 ML BAG IV ONE (09:05)
[2017-09-18] MEDS: PRAMIPEXOLE 0.25 MG TAB PO SCH ×2 (09:26→21:49)
--- NOTE | 2017-09-18 17:49 | PN ---
Date of Progress Note: 09/18/2017 Subjective: The patient is seen and examined. Chart reviewed and case discussed with RN and Dr. Dk dejesus, Dr. Pires as well as Dr. Coffman. The patient states he is doing better. He denies any pain. Review of Systems: Negative except as above. Medications: Reviewed. Physical Examination: Vital Signs: T-max 99.6, heart rate 78, blood pressure 160/78, respirations 18, O2 98% on room air. General: Awake, alert, oriented x3, in some mild distress. Elderly male. CV: S1, S2. Regular rate and rhythm. Peripheral pulses present. Respiratory: Clear to auscultation bilaterally. No wheezing. No stridor. Gastrointestinal: Abdomen is soft, nontender, nondistended. Positive bowel sounds. No guarding or rigidity. Extremities: No clubbing, cyanosis, or edema. No calf tenderness. Neuro: Cranial nerves 2 through 12 intact grossly. No focal neurological deficits. Speech is gabrielle l. Laboratory Data: Sodium 140, potassium 3.3, chloride 104, CO2 20, BUN 15, creatinine 0.7, glucose 12 8, calcium 8.6. WBC 6.7, H and H 11.8 and 34.6, platelets 88, neutrophils 88%. Hepatitis panel pend ing. Blood cultures growing gram-negative rods, ID and sensitivity pending. Urine culture showed mi xed luis. MRCP shows cholelithiasis with mild gallbladder wall thickening. No intrahepatic or extr ahepatic biliary tree dilatation suspected. No common bile duct stones suspected. Assessment And Plan: A 77-year-old male with: 1.Sepsis secondary to gram-negative bacteremia. Continue antibiotics. Follow up on ID and sensitiv ity. Continue IV fluids. Sepsis is resolving. 2.Gram-negative bacteremia. Cultures showing gram-negative rods in the blood. Follow up with final blood cultures. 3.Elevated liver enzymes, improving. 4.Elevated total bilirubin. MRCP is negative. No intervention planned by GI or Surgery at this fernando e. The patient is pain free. 5.Hemochromatosis. Discussed with Dr. Pires. Ferritin level was less than 500. The patient is stab le. Has periodic phlebotomy. 6.Diabetes mellitus type 2 with long-term use of insulin with hyperglycemia. We will continue slidi ng scale insulin and Accu-Cheks. 7.Hypomagnesemia. We will replace and monitor. 8.Hypokalemia. We will replace and monitor. 9.Thrombocytopenia, likely due to liver disease. 10.Gastrointestinal and deep venous thrombosis prophylaxis with PPI and SCDs, due to thrombocytopeni a. 11.History of chronic lymphocytic leukemia, in remission. Has been treated. Follows with Dr. Pirse. 12.History of traumatic brain injury. SA/MODL Voice ID: [id number] Report ID: [id number]
[2017-09-18] MEDS: TAMSULOSIN 0.4 MG SR CAP PO SCH (21:49)
[2017-09-18] MEDS: ATORVASTATIN 10 MG TAB PO SCH (21:50)
[2017-09-19] MEDS: CEFEPIME/SWI 2gm 2 GM/20 ML SYR IV SCH ×2 (00:52→08:43)
[2017-09-19] MEDS: NA CHLORIDE 0.9% 1,000 ML IV SCH ×2 (03:24→10:29)
[2017-09-19] MEDS: NA CHLORIDE 0.9% IV SCH (03:24)
[2017-09-19] MEDS: GENTAMICIN IV SCH (03:24)
[2017-09-19 04:24] LABS: Absolute Lymphocytes (CBC) 0.7 K/uL (0.7-4.9); Absolute Monocytes 0.3 K/uL (0.1-1.3); Absolute Neutrophil 5.3 K/uL (1.8-8.0); Basophils % 0.5 % (0-1.3); Eosinophils % 0.6 % (0-4.4); Hematocrit 33.2 % (39.6-49.0); Lymphocytes % 10.7 % (15.3-44.8); MCH 32.3 pg (27.0-35.0); MCV 92.6 fL (80-100); MPV 8.6 fL (7.6-11.3); Monocytes % 4.3 % (3.3-12.3); RBC Red Blood Cell Count 3.59 M/uL (4.33-5.43)
[2017-09-19 04:33] LABS: ALT/SGPT 12 IU/L (10-60); AST/SGOT 37 IU/L (10-42); Albumin 3.4 g/dL (3.2-5.5); Alkaline Phosphatase 78 IU/L (42-121); BUN Blood Urea Nitrogen 14 mg/dL (6-20); Bicarbonate 29 mEq/L (21-31); Bilirubin Total 2.7 mg/dL (0.3-1.2); Glucose Level 102 mg/dL (65-120); Magnesium 1.8 mg/dL (1.8-2.5); Potassium 3.5 mEq/L (3.6-5.0); Protein, Total 6.1 g/dL (6.0-8.3); Sodium Level 139 mEq/L (135-145)
[2017-09-19] MEDS: INSULIN -REGULAR HUMAN 50 UNIT/0.5 ML ML SQ SCH ×2 (07:30→11:30)
[2017-09-19] MEDS: ESCITALOPRAM 20 MG TAB PO SCH (08:41)
[2017-09-19] MEDS: GLIMEPIRIDE 2 MG TABLET PO SCH (08:41)
[2017-09-19] MEDS: CLOPIDOGREL 75 MG TABLET PO SCH (08:41)
[2017-09-19] MEDS: CARBIDOPA/LEVODOPA 25/100 TAB PO SCH ×2 (08:42→13:29)
[2017-09-19] MEDS: LORATADINE 10 MG TAB PO SCH (08:42)
[2017-09-19] MEDS: PRAMIPEXOLE 0.25 MG TAB PO SCH (08:42)
[2017-09-19] MEDS: CARBIDOPA/LEVODOPA 25/250 TAB PO SCH ×2 (08:42→13:29)
[2017-09-19] MEDS: FLUDROCORTISONE 0.1 MG TAB PO SCH (08:43)
[2017-09-19] MEDS: MIDODRINE HCL 5 MG TABLET PO SCH ×2 (08:43→13:29)
[2017-09-19] MEDS: lamoTRIgine 100 MG TAB PO SCH (08:43)
[2017-09-19] MEDS: ACYCLOVIR TOP SCH (08:44)
[2017-09-19] MEDS ORDERED: POTASSIUM 25 MEQ EFFERV TAB PO ONE (09:00)
[2017-09-19] MEDS ORDERED: MAGNESIUM SULFATE 1 gm IVPB 1 GM/100 ML BAG IV ONE (09:00)
[2017-09-19 09:27] VITALS: O2SAT 91
[2017-09-19 12:21] VITALS: BP 162/88; TEMP 98
[2017-09-19] MEDS ORDERED: Gentamicin Inj 140 MG in NA CHLORIDE 0.9% 100 ML IV SCH (15:00)
--- NOTE | 2017-09-20 03:54 | DS ---
Date of Discharge: 09/19/2017 Consultants: 1.Tc Kevin MD, General Surgery. 2.Kervin Coffman MD, General Surgery. 3.Chris Nevarez MD, GI. Admitting Diagnoses: 1.Sepsis. 2.Abnormal liver enzymes. 3.Diabetes mellitus type 2 with long-term use of insulin. 4.Hypomagnesemia. Discharge Diagnoses: 1.Sepsis, resolved. 2.Gram-negative E coli bacteremia. 3.Elevated liver enzymes, trending down. 4.Elevated total bilirubin, trending down. No obstruction on MRCP. 5.Hemochromatosis, ferritin level less than 500. Continue periodic phlebotomy with Oncology. 6.Diabetes mellitus type 2 with long-term use of insulin with hyperglycemia. 7.Hypomagnesemia, replaced. 8.Hypokalemia, replaced. 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 10.History of chronic lymphocytic leukemia, in remission. Follows with Dr. Hidalgo. 11.History of traumatic brain injury. 12.Parkinson disease. Hospital Course: The patient is a 77-year-old male who came in due to nausea and vomiting. He was f ound to have sepsis. Procalcitonin and liver enzymes were elevated. He was found to be septic. He was started on IV fluids, sepsis bundle, and IV antibiotics. Cultures were obtained. Blood cultures grew out E. coli. His urine culture grew out Enterococcus faecalis, which was vancomycin sensitive. CT scan of the abdomen and pelvis showed possible mild colitis, marked prostatic enlargement, erick lithiasis. Gallbladder, upper normal. Abdominal ultrasound was done, which showed mild gallbladder wall thickening, stones, and sludge. No biliary tree dilatation. Chest x-ray was negative. His UA was also negative. Dr. Kevin with General Surgery was consulted. He did not recommend any surgery at this time. The patient was pain free. Dr. Coffman was covering for Dr. Kevin while he was out o f town the following day. The patient's condition improved. His white count normalized. Procalcito brayden was trending down. His liver enzymes and bilirubin trended down as well. GI was consulted for p ossible biliary obstruction. MRCP was done, which was negative for any biliary tree obstruction or d ilatation. No common bile duct stones were suspected. It did show some cholelithiasis with mild gal lbladder wall thickening. The patient does have a history of hemochromatosis. Ferritin level was ch ecked which was less than 500. I spoke with Dr. Hidalgo, who stated that the patient will be having periodic phlebotomies. The patient was also seen by Dr. Nevarez of GI, who did not recommend any intervention such as ERCP. The patient did well. Over the course of the hospital stay, his sep sis resolved. He was able to ambulate well using a walker. The patient was then cleared for dischar ge from consultants standpoint and was sent back to [facility]. Discharge Medications: As per medication reconciliation list. Condition: Stable. Activity: Fall precautions. Diet: Diabetic. Followup: Follow up with PCP in 2-3 days. Follow up with oncologist, Dr. Hidalgo, as schedul ed. Follow up with GI, Dr. Nevarez, in 4 weeks. Return to ER for worsening condition. Discharge Physical Examination: General: Awake, alert, oriented, no acute distress. CV: S1, S2. No murmurs. Respiratory: Moving air well bilaterally. Abdomen: Soft, nontender, nondistended. Positive bowel sounds. Extremities: No clubbing, cyanosis, edema. Neurologic: Nonfocal. Total time spent discharging the patient was 37 minutes. /IRINA Voice ID: [id number] Report ID: [id number]
[2017-09-20 13:54] LABS: HBsAG Nonreactive
[2017-09-20 13:55] LABS: Hepatitis A IgM Antibody Nonreactive
== END 2017-09-19 15:02 | DRG 872 ==
LOC: ER 17:11 → ERHOLD 18:55 → 4TH 21:28 → OBSVTOIN 09-17 13:35
PROVIDERS: ADMIT Internal Medicine; ATTEND Internal Medicine
DX: A41.9 Sepsis, unspecified organism (principal); C91.11 Chronic lymphocytic leukemia of B-cell type in remission; A41.51 Sepsis due to Escherichia coli [E. coli]; R74.8 Abnormal levels of other serum enzymes; E83.119 Hemochromatosis, unspecified; E83.42 Hypomagnesemia; E11.65 Type 2 diabetes mellitus with hyperglycemia; E87.6 Hypokalemia; D69.6 Thrombocytopenia, unspecified; Z87.820 Personal history of traumatic brain injury; G20 Parkinson's disease; N40.0 Benign prostatic hyperplasia without lower urinary tract symptoms; Z79.4 Long term (current) use of insulin; K80.20 Calculus of gallbladder without cholecystitis without obstruction; K52.9 Noninfective gastroenteritis and colitis, unspecified
CPT/HCPCS: 36415; 71045; 74177; 74181; 76705; 80048; 80053; 80074; 80076; 80170; 81003; 82140; 82550; 82553; 82728; 82962; 83690; 83735; 83880; 84132; 84145; 84484; 85025; 85610; 85730; 87040; 87077; 87086; 87088; 87186; 87205; 87804; 94760; 96365; 96375; 99285; G0378; J0456; J0692; J0744; J1580; J2543; J3475; J7030; Q9967

== ENCOUNTER 2017-12-10 11:59 | Inpatient (IN) | payer OTHER ==
--- OUTSIDE RECORDS SUMMARY | 2017-12-10 12:01 | XMS REPORT | Clinical Summary ---
:1940 Author Organization [facility] Address [address] [place] [id number] Care Team Providers Name Role Phone Kamini Russ MD Primary Care Provider Allergies Not on File Current Medications Not on file Active Problems Not on file Social History Tobacco Use Types Packs/Day Years Used Date Never Assessed Sex Assigned at Date Recorded Not on file Last Filed Vital Signs Not on file Plan of Treatment Health Maintenance Due Date Last Done Comments SHINGRIX VACCINE (#1) 1989 ZOSTER VACCINE 1999 PNEUMOCOCCAL POLYSACCHARIDE VACCINE AGE 65 AND OVER 02/17/2004 PNEUMOCOCCAL-13 02/17/2004 INFLUENZA VACCINE 11/06/2017 Results Not on fileafter 12/09/2016 Insurance Payer Benefit Plan / Group Subscriber ID Type Phone Address A[employer]NA MEDICARE AETNA MEDICARE HMO/PPO [facility] xxxxxxxx HMO Home: [address] [phone] [id number]
[2017-12-10] MEDS ORDERED: NA CHLORIDE 0.9% 1,000 ML ONE ×3 (12:32→14:53)
--- NOTE | 2017-12-10 13:05 | RAD REPORT ---
EXAM DESCRIPTION: CT - Head Brain Wo Cont - 12/10/2017 12:57 pm CLINICAL HISTORY: Weakness, transient alteration of awareness COMPARISON: April 2016. TECHNIQUE: Axial 5 mm thick images of the head were obtained without IV contrast. All CT scans are performed using dose optimization technique as appropriate and may include automated exposure control or mA/KV adjustment according to patient size. FINDINGS: No intracranial hemorrhage, mass, edema or shift of mid-line structures. No acute infarcti on changes seen. Patient has atrophy and chronic ischemic change. Ventricles are prominent in size. S ize is similar to April 2016 study. Mastoid air cells and visualized portions of the paranasal sinuses are clear. No acute bony findings. IMPRESSION: No acute intracranial finding. Atrophy and chronic ischemic changes match the prior study. Chronic ischemic changes can mask nonhemorrhagic acute infarction. MR brain followup can be obtained if there is ongoing concern for acute ischemia.
[2017-12-10 13:06] LABS: Protime INR 1.34
[2017-12-10 13:18] LABS: ALT/SGPT 22 U/L (12-78); AST/SGOT 16 U/L (15-37); Albumin 3.9 g/dL (3.4-5.0); Alkaline Phosphatase 60 U/L (45-117); BUN Blood Urea Nitrogen 23 mg/dL (7-18); Bicarbonate 20 mmol/L (21-32); Bilirubin Direct 0.6 mg/dL (0-0.2); Bilirubin Total 2.1 mg/dL (0.2-1.0); CKMB Creatine Kinase MB < 1.0 ng/mL (0.3-3.6); Creatine Phosphokinase 57 U/L (39-308); Glucose Level 187 mg/dL (74-106); NT PRO-BNP 732 pg/mL (<450); Protein, Total 7.1 g/dL (6.4-8.2); Sodium Level 136 mmol/L (136-145); Troponin (Emerg Dept Use Only) < 0.02 ng/mL (0.0-0.045)
[2017-12-10 13:20] LABS: Absolute Lymphocytes (CBC) 0.3 K/uL (0.7-4.9); Absolute Monocytes 0.1 K/uL (0.1-1.3); Absolute Neutrophil 5.1 K/uL (1.8-8.0); Basophils % 0.1 % (0-1.3); Hematocrit 36.7 % (39.6-49.0); Lymphocytes % 5.8 % (15.3-44.8); MCH 33.7 pg (27.0-35.0); MCV 96.8 fL (80-100); MPV 8.7 fL (7.6-11.3); Monocytes % 2.2 % (3.3-12.3); RBC Red Blood Cell Count 3.79 M/uL (4.33-5.43)
[2017-12-10 13:31] LABS: Magnesium 1.3 mg/dL (1.8-2.4)
[2017-12-10 13:39] LABS: Blood Morphology Comment NOT SEEN (NOT SEEN); Platelet Estimate ADEQ
[2017-12-10] MEDS ORDERED: Magnesium Sulfate 2gm IVPB 2 G/50 ML BAG IV ONE (14:08)
[2017-12-10] MEDS ORDERED: CEFTRIAXONE/SWI 1gm 1 GM/10 ML SYR ONE (14:08)
--- NOTE | 2017-12-10 14:09 | RAD REPORT ---
EXAM DESCRIPTION: RAD - Chest Single View - 12/10/2017 1:03 pm CLINICAL HISTORY: Weakness, shortness of breath COMPARISON: September 16 TECHNIQUE: AP portable chest image was obtained 1255 hour . FINDINGS: Lung volumes are low. This accentuates lung markings. Lung base atelectasis is present. Co nsolidation or focal infiltrate is doubtful. No suspicious mass and no failure or volume overload. He art and vasculature are normal. No measurable pleural effusion and no pneumothorax. No gross bony abn ormality seen. No acute aortic findings suspected. IMPRESSION: Shallow inspiration portable exam showing lung base atelectasis. No focal infiltrate suspected and no failure or volume overload.
[2017-12-10 14:24] LABS: Urine Bacteria >50 /HPF (NONE SEEN); Urine Culture Reflex Order REFLEXED
[2017-12-10 14:24] LABS: Urine Blood 2+ (NEG); Urine Glucose NEGATIVE (NEG); Urine Protein 2+ (NEG); Urine Specific Gravity 1.015 (1.005-1.030)
[2017-12-10] MEDS ORDERED: POTASSIUM 25 MEQ EFFERV TAB ONE (14:46)
--- NOTE | 2017-12-10 14:48 | EDPHYS ---
Physician Documentation [facility] Name: Shaquille Mesa Age: 77 yrs Sex: Male : 1940 Arrival Date: 12/10/2017 Time: 12:06 Bed 28 Private MD: ED Physician Johan Nieto HPI: 12/10 14:00 This 77 yrs old Male presents to ER via EMS with complaints of General pm1 Weakness. 14:00 The patient presents to the emergency department with weakness of the entire body, pm1 generalized weakness. Onset: The symptoms/episode began/occurred last night. Context: occurred at a alf or assisted living facility. Associated signs and symptoms: Pertinent positives: altered mental status, possible fever. Severity of symptoms: in the emergency department the symptoms have improved Pain is currently a 0 / 10. Patient's baseline: Neuro: alert and fully oriented, Motor: no deficits, Ambulation: walks without assistance. Current symptoms: Currently, the patient is not experiencing any symptoms. The patient has experienced similar episodes in the past, a few times, and the symptoms today are exactly the same, to previous Urosepsis per sister who has power of state attorney . The patient has not recently seen a physician, the patient's primary care provider is Dr. gonzales. 14:00 Frequent urination per sister when she was visiting him yesterday. pm1 Historical: - Allergies: 12:10 No Known Allergies; dm5 - Home Meds: 13:22 atorvastatin 10 mg Oral tab 1 tab once daily [Active]; clopidogrel 75 mg Oral tab 1 tab ss once daily [Active]; carbidopa-levodopa 25-250 mg Oral tab 1 tab 4 times per day for Parkinsonism [Active]; escitalopram oxalate 20 mg Oral tab 1 tab once daily [Active]; metformin 1,000 mg Oral tab 1 tab 2 times per day [Active]; glimepiride 2 mg Oral tab 1 tab once daily [Active]; lamotrigine 100 mg Oral TbDL 1 tab 2 times per day [Active]; bisacodyl 10 mg Rectal supp 1 suppository once daily as needed for constipation [Active]; lactulose 10 gram/15 mL (15 mL) Oral soln 30 mL once daily [Active]; lactulose 10 gram/15 mL (15 mL) Oral soln 30 mL Every day as needed for constipation [Active]; lorazepam 0.5 mg Oral tab 1 tab 3 times per day for Anxiety [Active]; tamsulosin 0.4 mg Oral cp24 1 cap once daily [Active]; midodrine 5 mg Oral tab 3 tabs 3 times per day [Active]; loratadine 10 mg Oral tab 1 tab once daily [Active]; - PMHx: 12:10 Asthma; Benign Prostatic Hypertrophy; Depression; Diabetes - NIDDM; epilepsy; 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 - Social history:: Smoking status: Patient/guardian denies using tobacco. - Ebola Screening: : Patient negative for fever greater than or equal to 101.5 degrees Fahrenheit, and additional compatible Ebola Virus Disease symptoms Patient denies exposure to infectious person Patient denies travel to an Ebola-affected area in the 21 days before illness onset No symptoms or risks identified at this time. ROS: 14:00 Constitutional: Negative for fever, chills, and weight loss, Eyes: Negative for injury, pm1 pain, redness, and discharge, ENT: Negative for injury, pain, and discharge, Neck: Negative for injury, pain, and swelling, Cardiovascular: Negative for chest pain, palpitations, and edema, Respiratory: Negative for shortness of breath, cough, wheezing, and pleuritic chest pain, Abdomen/GI: Negative for abdominal pain, nausea, vomiting, diarrhea, and constipation, Back: Negative for injury and pain, : Negative for injury, bleeding, discharge, and swelling, MS/Extremity: Negative for injury and deformity, Skin: Negative for injury, rash, and discoloration. 14:00 Neuro: Positive for altered mental status, generalized weakness, Negative for numbness, tingling. Exam: 14:00 Constitutional: This is a well developed, well nourished patient who is awake, alert, pm1 and in no acute distress. Head/Face: Normocephalic, atraumatic. Eyes: Pupils equal round and reactive to light, extra-ocular motions intact. Lids and lashes normal. Conjunctiva and sclera are non-icteric and not injected. Cornea within normal limits. Periorbital areas with no swelling, redness, or edema. ENT: Nares patent. No nasal discharge, no septal abnormalities noted. Tympanic membranes are normal and external auditory canals are clear. Oropharynx with no redness, swelling, or masses, exudates, or evidence of obstruction, uvula midline. Mucous membranes moist. Neck: Trachea midline, no thyromegaly or masses palpated, and no cervical lymphadenopathy. Supple, full range of motion without nuchal rigidity, or vertebral point tenderness. No Meningismus. Chest/axilla: Normal chest wall appearance and motion. Nontender with no deformity. No lesions are appreciated. Cardiovascular: Regular rate and rhythm with a normal S1 and S2. No gallops, murmurs, or rubs. No pulse deficits. Respiratory: Lungs have equal breath sounds bilaterally, clear to auscultation and percussion. No rales, rhonchi or wheezes noted. No increased work of breathing, no retractions or nasal flaring. Abdomen/GI: Soft, non-tender, with normal bowel sounds. No distension or tympany. No guarding or rebound. No evidence of tenderness throughout. Skin: Warm, dry with normal turgor. Normal color with no rashes, no lesions, and no evidence of cellulitis. MS/ Extremity: Pulses equal, no cyanosis. Neurovascular intact. Full, normal range of motion. 14:00 Neuro: Orientation: is normal, Motor: moves all fours, Sensation: is normal, no obvious gross deficits. Vital Signs: 12:10 BP 96 / 53; Pulse 107; Resp 20; Temp 98(O); Pulse Ox 96% on R/A; dm5 12:30 BP 112 / 61; Pulse 106; Resp 20; Pulse Ox 95% on R/A; aj 14:38 BP 100 / 64; Pulse 100; Resp 16; Pulse Ox 98% on R/A; aj 16:38 BP 110 / 67; Pulse 101; Resp 18; Pulse Ox 100% on R/A; aj 17:36 BP 129 / 78; Pulse 106; Resp 20; Pulse Ox 99% on R/A; aj MDM: 12:12 Patient medically screened. pm1 14:44 Data reviewed: vital signs. Data interpreted: Pulse oximetry: on room air is 98 %. pm1 Interpretation: normal. Counseling: I had a detailed discussion with the patient and/or guardian regarding: the historical points, exam findings, and any diagnostic results supporting the discharge/admit diagnosis, lab results, radiology results, the need for further work-up and treatment in the hospital, to return to the emergency department if symptoms worsen or persist or if there are any questions or concerns that arise at home. 12/10 12:22 Order name: Basic Metabolic Panel; Complete Time: 13:52 pm1 12/10 12:22 Order name: CBC with Diff; Complete Time: 13:52 pm1 12/10 12:22 Order name: Ckmb; Complete Time: 13:52 pm1 12/10 12:22 Order name: CPK; Complete Time: 13:52 pm1 12/10 12:22 Order name: LFT's; Complete Time: 13:52 pm1 12/10 12:22 Order name: Magnesium; Complete Time: 13:52 pm1 12/10 12:22 Order name: NT PRO-BNP; Complete Time: 13:52 pm1 12/10 12:22 Order name: PT-INR; Complete Time: 13:52 pm1 12/10 12:22 Order name: Ptt, Activated; Complete Time: 13:52 pm1 12/10 12:22 Order name: Troponin (emerg Dept Use Only); Complete Time: 13:52 pm1 12/10 12:22 Order name: Urine Microscopic Only; Complete Time: 14:28 pm1 12/10 12:22 Order name: Blood Culture Adult (2) pm1 12/10 12:22 Order name: Procalcitonin; Complete Time: 13:52 pm1 12/10 12:22 Order name: Lactate; Complete Time: 13:52 pm1 12/10 12:19 Order name: CT Head Brain wo Cont; Complete Time: 13:52 pm1 12/10 12:22 Order name: XRAY Chest (1 view); Complete Time: 14:28 pm1 12/10 12:22 Order name: EKG; Complete Time: 12:23 pm1 12/10 12:22 Order name: Cardiac monitoring; Complete Time: 13:20 pm1 12/10 13:39 Order name: Manual Differential; Complete Time: 13:52 EDMS 12/10 14:19 Order name: Urine Dipstick--Ancillary (enter results) eb 12/10 14:24 Order name: Lactate; Complete Time: 16:26 aj 12/10 14:27 Order name: Urine Culture EDMS 12/10 17:51 Order name: Thyroid Stimulating Hormone; Complete Time: 17:55 EDMS 12/10 12:22 Order name: EKG - Nurse/Tech; Complete Time: 13:27 pm1 12/10 12:22 Order name: IV Saline Lock; Complete Time: 12:49 pm1 12/10 12:22 Order name: Labs collected and sent; Complete Time: 12:49 pm1 12/10 12:22 Order name: O2 Per Protocol; Complete Time: 12:50 pm1 12/10 12:22 Order name: O2 Sat Monitoring; Complete Time: 12:50 pm1 12/10 12:22 Order name: Urine Dipstick-Ancillary (obtain specimen); Complete Time: 15:47 pm1 Administered Medications: 13:28 Drug: NS 0.9% 1000 ml Route: IV; Rate: 1000 ml; Site: right forearm; aj 14:31 Follow up: Response: No adverse reaction; IV Status: Completed infusion; IV Intake: aj 1000ml 14:10 Drug: Rocephin 1 grams Route: IV; Rate: calculated rate; Site: right forearm; aj 14:31 Follow up: Response: No adverse reaction; IV Status: Completed infusion; IV Intake: 25mlaj 14:10 Drug: Magnesium Sulfate 2 grams Route: IVPB; Infused Over: 2 hrs; Site: right forearm; aj 15:46 Follow up: Response: No adverse reaction; IV Status: Completed infusion; IV Intake: 50mlaj 14:25 Drug: NS 0.9% 1000 ml Route: IV; Rate: 1000 ml; Site: right forearm; aj 15:45 Follow up: Response: No adverse reaction; IV Status: Completed infusion; IV Intake: aj 1000ml 14:45 Drug: Potassium Effervescent Tablet 50 mEq Route: PO; aj 15:24 Follow up: Response: No adverse reaction aj 15:10 Drug: vancoMYCIN 1 grams Route: IVPB; Infused Over: 2 hrs; Site: right forearm; aj 15:23 Drug: NS 0.9% 1000 ml Route: IV; Rate: 1000 ml; Site: right forearm; aj Disposition: 12/11 07:28 Co-signature as Attending Physician, Johan ESTRADA I agree with the assessment and janusz plan of care. Disposition: 12/10/17 14:47 Hospitalization ordered by Alla Ying for Inpatient Admission. Preliminary diagnosis is Urosepsis. - Bed requested for Telemetry/MedSurg (Inpatient). - Status is Inpatient Admission. aj - Condition is Stable. - Problem is new. - Symptoms have improved. UTI on Admission? Yes Signatures: Dispatcher [employer] Susana Call, Charito Kennedy RN, RN RN aj Anderson, Corey, MD MD cha Smirch, Shelby, RN RN ss Marinas, Patrick, SCRUB WHEEL OPERATOR SCRUB WHEEL OPERATOR pm1 Jayla Isabel Corrections: (The following items were deleted from the chart) 12/10 14:49 14:47 Hospitalization Ordered by Alla Ying MD for Inpatient Admission. Preliminary pm1 diagnosis is Urosepsis. Bed requested for Intensive Care Unit. Status is Inpatient Admission. Condition is Stable. Problem is new. Symptoms have improved. UTI on Admission? Yes. pm1 16:51 14:49 12/10/2017 14:47 Hospitalization Ordered by Alla Ying MD for Inpatient eb Admission. Preliminary diagnosis is Urosepsis. Bed requested for Telemetry/MedSurg (Inpatient). Status is Inpatient Admission. Condition is Stable. Problem is new. Symptoms have improved. UTI on Admission? Yes. pm1 18:00 16:51 12/10/2017 14:47 Hospitalization Ordered by Alla Ying MD for Inpatient aj Admission. Preliminary diagnosis is Urosepsis. Bed requested for Telemetry/MedSurg (Inpatient). Status is Inpatient Admission. Condition is Stable. Problem is new. Symptoms have improved. UTI on Admission? Yes. eb
--- NOTE | 2017-12-10 14:48 | ER ---
Nurse's Notes [facility] Name: Shaquille Mesa Age: 77 yrs Sex: Male : 1940 Arrival Date: 12/10/2017 Time: 12:06 Bed 28 Private MD: Diagnosis: Urosepsis Presentation: 12/10 12:06 Presenting complaint: EMS states: general weakness and AMS started last night but seems dm5 to be getting worse. EmS reports diaphoresis and difficulty urinating. Pt has a history of UTIs. Transition of care: patient was not received from another setting of care. Onset of symptoms was December 10, 2017. Risk Assessment: Do you want to hurt yourself or someone else? Patient reports no desire to harm self or others. Initial Sepsis Screen: Does the patient meet any 2 criteria? RR > 20 per min. Altered Mental Status. Yes Does the patient have a suspected source of infection? Yes: Dysuria/Frequency/Urgency/UTI. Care prior to arrival: 2 missed IV attempts. 12:06 Method Of Arrival: EMS: [facility] dm5 12:06 Acuity: PRABHU 3 dm5 Triage Assessment: 12:10 General: Appears in no apparent distress. Behavior is calm, cooperative. Pain: Denies dm5 pain. Historical: - Allergies: 12:10 No Known Allergies; dm5 - Home Meds: 13:22 atorvastatin 10 mg Oral tab 1 tab once daily [Active]; clopidogrel 75 mg Oral tab 1 tab ss once daily [Active]; carbidopa-levodopa 25-250 mg Oral tab 1 tab 4 times per day for Parkinsonism [Active]; escitalopram oxalate 20 mg Oral tab 1 tab once daily [Active]; metformin 1,000 mg Oral tab 1 tab 2 times per day [Active]; glimepiride 2 mg Oral tab 1 tab once daily [Active]; lamotrigine 100 mg Oral TbDL 1 tab 2 times per day [Active]; bisacodyl 10 mg Rectal supp 1 suppository once daily as needed for constipation [Active]; lactulose 10 gram/15 mL (15 mL) Oral soln 30 mL once daily [Active]; lactulose 10 gram/15 mL (15 mL) Oral soln 30 mL Every day as needed for constipation [Active]; lorazepam 0.5 mg Oral tab 1 tab 3 times per day for Anxiety [Active]; tamsulosin 0.4 mg Oral cp24 1 cap once daily [Active]; midodrine 5 mg Oral tab 3 tabs 3 times per day [Active]; loratadine 10 mg Oral tab 1 tab once daily [Active]; - PMHx: 12:10 Asthma; Benign Prostatic Hypertrophy; Depression; Diabetes - NIDDM; epilepsy; 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 - Social history:: Smoking status: Patient/guardian denies using tobacco. - Ebola Screening: : Patient negative for fever greater than or equal to 101.5 degrees Fahrenheit, and additional compatible Ebola Virus Disease symptoms Patient denies exposure to infectious person Patient denies travel to an Ebola-affected area in the 21 days before illness onset No symptoms or risks identified at this time. Screenin:29 Abuse screen: Denies threats or abuse. Denies injuries from another. Nutritional aj screening: No deficits noted. Tuberculosis screening: No symptoms or risk factors identified. Fall Risk None identified. Assessment: 13:09 General: Appears in no apparent distress. comfortable, Behavior is calm, cooperative, aj appropriate for age. Pain: Denies pain. Neuro: Level of Consciousness is awake, alert, obeys commands, Oriented to person, place, time, situation, Appropriate for age. Neuro: Reports weakness Generalized. Respiratory: Airway is patent Respiratory effort is even, unlabored, Respiratory pattern is regular, symmetrical. GI: No signs and/or symptoms were reported involving the gastrointestinal system. Derm: Skin is intact, is healthy with good turgor, Skin is pink, warm \T\ dry. normal. 14:30 Reassessment: Patient appears in no apparent distress at this time. No changes from aj previously documented assessment. Patient and/or family updated on plan of care and expected duration. Pain level reassessed. Patient is alert, oriented x 3, equal unlabored respirations, skin warm/dry/pink. Sister is at bedside. Patient denies pain at this time. Vital Signs: 12:10 BP 96 / 53; Pulse 107; Resp 20; Temp 98(O); Pulse Ox 96% on R/A; dm5 12:30 BP 112 / 61; Pulse 106; Resp 20; Pulse Ox 95% on R/A; aj 14:38 BP 100 / 64; Pulse 100; Resp 16; Pulse Ox 98% on R/A; aj 16:38 BP 110 / 67; Pulse 101; Resp 18; Pulse Ox 100% on R/A; aj 17:36 BP 129 / 78; Pulse 106; Resp 20; Pulse Ox 99% on R/A; aj ED Course: 12:06 Patient arrived in ED. dm5 12:09 Triage completed. dm5 12:10 Arm band placed on right wrist. Patient placed in an exam room, on a stretcher, on dm5 monitor and storage bin tender, on pulse oximetry. 12:12 Brenton Fisher, SCARLETT is PHCP. pm1 12:12 Johan Nieto MD is Attending Physician. pm1 12:15 Warm blanket given. Pillow given. monitoring coordinator on. Pulse ox on. NIBP on. jp3 12:25 Charito Francis, NICK is Primary Nurse. aj 12:30 Initial lab(s) drawn, by vt, sent to lab. First set of blood cultures drawn via jp3 20-gauge IV in Right Forearm. Inserted saline lock: 20 gauge in left forearm, using aseptic technique. Blood collected. 12:48 Lactate Sent. jp3 12:48 Procalcitonin Sent. jp3 12:49 Basic Metabolic Panel Sent. jp3 12:49 CBC with Diff Sent. jp3 12:49 Ckmb Sent. jp3 12:49 CPK Sent. jp3 12:49 LFT's Sent. jp3 12:49 Magnesium Sent. jp3 12:49 NT PRO-BNP Sent. jp3 12:49 PT-INR Sent. jp3 12:49 Ptt, Activated Sent. jp3 12:49 Troponin (emerg Dept Use Only) Sent. jp3 12:58 CT Head Brain wo Cont In Process Unspecified. EDMS 12:59 X-ray completed. Portable x-ray completed in exam room. Patient tolerated procedure jb2 well. 13:03 XRAY Chest (1 view) In Process Unspecified. EDMS 13:10 IV discontinued, intact, bleeding controlled, No redness/swelling at site. Pressure jp3 dressing applied, IV blew when patient was given contrast in CT. 13:27 EKG done, by agricultural technician. 3 13:30 Second set of blood cultures drawn via 22-gauge IV in Right Forearm. Inserted saline jp3 lock: 22 gauge in right forearm, using aseptic technique. Blood collected. 13:34 Blood Culture Adult (2) Sent. jp3 14:01 Straight cath inserted, using sterile technique, 16 Fr. Specimen obtained. Returned aj clear yellow urine. Patient tolerated well. 14:38 Patient has correct armband on for positive identification. aj 14:46 Alla Ying MD is Hospitalizing Provider. pm1 17:48 No provider procedures requiring assistance completed. aj Administered Medications: 13:28 Drug: NS 0.9% 1000 ml Route: IV; Rate: 1000 ml; Site: right forearm; aj 14:31 Follow up: Response: No adverse reaction; IV Status: Completed infusion; IV Intake: aj 1000ml 14:10 Drug: Rocephin 1 grams Route: IV; Rate: calculated rate; Site: right forearm; aj 14:31 Follow up: Response: No adverse reaction; IV Status: Completed infusion; IV Intake: 25mlaj 14:10 Drug: Magnesium Sulfate 2 grams Route: IVPB; Infused Over: 2 hrs; Site: right forearm; aj 15:46 Follow up: Response: No adverse reaction; IV Status: Completed infusion; IV Intake: 50mlaj 14:25 Drug: NS 0.9% 1000 ml Route: IV; Rate: 1000 ml; Site: right forearm; aj 15:45 Follow up: Response: No adverse reaction; IV Status: Completed infusion; IV Intake: aj 1000ml 14:45 Drug: Potassium Effervescent Tablet 50 mEq Route: PO; aj 15:24 Follow up: Response: No adverse reaction aj 15:10 Drug: vancoMYCIN 1 grams Route: IVPB; Infused Over: 2 hrs; Site: right forearm; aj 15:23 Drug: NS 0.9% 1000 ml Route: IV; Rate: 1000 ml; Site: right forearm; aj Intake: 14:31 IV: 1000ml; Total: 1000ml. aj 14:31 IV: 25ml; Total: 1025ml. aj 15:45 IV: 1000ml; Total: 2025ml. aj 15:46 IV: 50ml; Total: 2075ml. julius Outcome: 14:47 Decision to Hospitalize by Provider. pm1 17:48 Admitted to Med/surg accompanied by tech, via wheelchair, room 230, Report called to julius Keenan RN 17:48 Condition: good 17:48 Instructed on the need for admit. 18:00 Patient left the ED. aj Signatures: Dispatcher [employer] Susana Call, NICK ROMERO dm5 Charito Francis RN RN aj Buechter, Jesse jb2 Julia Euceda, NICK ROMERO ss Brenton Fisher, CAREER DEVELOPMENT MANAGER CAREER DEVELOPMENT MANAGER pm1 Dena Thornton sm3 Marcell Arango jp3
[2017-12-10] MEDS ORDERED: VANCOMYCIN 1 GM/250 ML BAG ONE (14:53)
--- NOTE | 2017-12-10 15:43 | P.HP ---
Certification for Inpatient Patient admitted to: Inpatient With expected LOS: >2 Midnights Patient will require the following post-hospital care: None Practitioner: I am a practitioner with admitting privileges, knowledge of patient current condition, hospital course, and medical plan of care. Services: Services provided to patient in accordance with Admission requirements found in Title 42 Section 412.3 of the Code of Federal Regulations Patient History Date of Service: 12/10/17 Primary Care Provider: Clarisse Reason for admission: Septic shock History of Present Illness: This is a 77-year-old male with significant past medical history of asthma, diabetes, Parkinson's and recurring UTIs who presented to the ED from the [facility] after was found altered at the [facility]. Most of the history was collected from the physician in the ER. Patient was that the [facility] assisted-living facility where he was found to be altered and thus was brought over to the ER. At the nursing facility patient also had some fever and was complaining of having some chills at that time. Patient has had similar episodes in the past were he was admitted to the hospital for UTI and had bacteremia at that time and thus was started on IV antibiotics and was discharged home oral once he had resolution of his symptoms. Alf denied having any chest pain shortness of breath or any other associated symptoms at this time. In the ER upon examination patient was alert but oriented x1. Patient appeared to be acutely ill and this would be admitted to the hospital for severe septic shock. Allergies No Known Allergies Allergy (Verified 09/16/17 22:48) Home Medications: Clopidogrel Bisulfate [Clopidogrel] 75 mg PO DAILY 03/11/14 Escitalopram [Lexapro*] 20 mg PO DAILY 03/11/14 Lamotrigine [Lamictal] 100 mg PO BID 03/11/14 Atorvastatin Calcium [Lipitor*] 10 mg PO BEDTIME 08/31/16 Loratadine [Claritin*] 10 mg PO DAILY 08/31/16 Metformin HCl [Metformin HCl ER] 1,000 mg PO BID 08/31/16 Polyethyl Gly 3350 [Glycolax*] 17 gm PO SEECOM 08/31/16 Super Beta Prostate W/Vit D3 1 cap PO BID 08/31/16 Tamsulosin HCl [Flomax] 0.4 mg PO BEDTIME 08/31/16 Acyclovir 1 appl TOP DAILY 09/17/17 Bisacodyl [Dulcolax*] 1 supp LA DAILY PRN 09/17/17 Carbidopa/Levodopa 25-100 [Sinemet 25-100*] 1 tab PO QID 09/17/17 Fludrocortisone Acetate 0.1 mg PO DAILY 09/17/17 Glimepiride 2 mg PO DAILY 09/17/17 Guaifenesin [Tussin] 10 ml PO Q6H PRN 09/17/17 LORazepam [Ativan*] 0.5 mg PO TID PRN 09/17/17 Lactulose 30 ml PO DAILY PRN 09/17/17 Midodrine HCl [Proamatine*] 15 mg PO TID 09/17/17 Pramipexole Di-HCl [Mirapex] 0.5 mg PO BID 09/17/17 Amox/Clavulanate [Augmentin 875-125 Tab] 875 mg PO BID #20 tab 09/19/17 - Past Medical/Surgical History Diabetic: Yes -: orthostatic hypotension -: recurrent syncope -: non insulin dependent diabetes -: hyperlipidemia -: parkinsons -: tonsillectomy - Family History Father -: GI disease Notes: coronary thrombosis Sister -: Cancer - Social History Alcohol use: No CD- Drugs: No Caffeine use: Yes Review of Systems 10-point ROS is otherwise unremarkable Physical Examination - Physical Exam General: Alert, Oriented x1, Acute distress HEENT: Atraumatic, PERRLA, Mucous membr. moist/pink, EOMI, Sclerae nonicteric Neck: Supple, 2+ carotid pulse no bruit, No LAD, Without JVD or thyroid abnormality Respiratory: Normal air movement, Rhonchi/gurgles Cardiovascular: Regular rate/rhythm, Normal S1 S2 Gastrointestinal: Normal bowel sounds, No tenderness Musculoskeletal: No tenderness Integumentary: No rashes Neurological: Normal tone, Abnormal speech, Abnormal strength Lymphatics: No axilla or inguinal lymphadenopathy - Studies Laboratory Data (last 24 hrs) 12/10/17 12:30: PT 15.8 H, INR 1.34, APTT 28.9 12/10/17 12:30: WBC 5.6, Hgb 12.8 L, Hct 36.7 L, Plt Count 132 L 12/10/17 12:30: Sodium 136, Potassium 3.0 L, BUN 23 H, Creatinine 1.60 H, Glucose 187 H, Magnesium 1.3 L*, Total Bilirubin 2.1 H, AST 16, ALT 22, Alkaline Phosphatase 60 Assessment and Plan - Problems (Diagnosis) (1) Sepsis Onset Date: 09/17/17 Current Visit: No Status: Acute Plan: Sever Sepsis with TAMIKO and elevated LA. most likely 2.2 to UTI and possible bactermia -IV vanc and zosyn -Blood culture, Urine culture pending -IV fluids for hypotension. -Repeat Lab work in AM and f.u with Culture Qualifiers: Sepsis type: sepsis due to unspecified organism Qualified Code(s): A41.9 - Sepsis, unspecified organism (2) UTI (urinary tract infection) Current Visit: Yes Status: Acute Plan: Acute Cystitis -Urine Culture pending. Past + for ecoli -IV vanc and zosyn (3) TAMIKO (acute kidney injury) Current Visit: Yes Status: Acute Plan: TAMIKO with elevated BUN.CR. Most likely dehydration vs Sepsis -IV fluids for now (4) Diabetes mellitus Onset Date: 09/17/17 Current Visit: No Status: Chronic Plan: ISS Qualifiers: Diabetes mellitus type: type 2 Diabetes mellitus half-way insulin use: without half-way use Diabetes mellitus complication status: with unspecified complications Qualified Code(s): E11.8 - Type 2 diabetes mellitus with unspecified complications - Plan The patient was admitted to [facility] for septic shock. Started on IV antibiotics. Cultures are pending at time. Will continue IV fluids and antibiotics Discharge Plan: Alf Plan to discharge in: 72 Hours - Advance Directives Does patient have a Living Will: Yes Does patient have a Durable POA for Healthcare: Yes - Code Status/Comfort Care Code Status Assessed: Yes Critical Care: No
[2017-12-10] MEDS ORDERED: ONDANSETRON 4 MG/2 ML VIAL IV PRN (16:26)
[2017-12-10] MEDS ORDERED: ACETAMINOPHEN 500 MG TAB PO PRN (16:26)
[2017-12-10] MEDS: NA CHLORIDE 0.9% 1,000 ML IV SCH (18:25)
[2017-12-10] MEDS: ENOXAPARIN 40 MG/0.4 ML SQ SCH (18:25)
[2017-12-10 21:18] LABS: Magnesium 1.7 mg/dL (1.8-2.4); Phosphorus 2.4 mg/dL (2.5-4.9); Potassium 4.2 mmol/L (3.5-5.1)
[2017-12-10] MEDS ORDERED: MAGNESIUM SULFATE 1 gm IVPB 1 GM/100 ML BAG IV ONE (21:37)
[2017-12-10] MEDS: PIPER/TAZO/NS 3.375gm 3.375 GM/100 ML BAG IVPB SCH (23:27)
[2017-12-11] MEDS ORDERED: VANCOMYCIN 1.25 GM in NA CHLORIDE 0.9% 250 ML IVPB SCH (03:00)
--- NOTE | 2017-12-11 04:18 | EKG ---
Test Date: 2017-12-10 Test Time: 13:25:25 Bobbin Painter: MARILYN MEASUREMENT RESULTS: Intervals: Rate: 104 VT: 186 QRSD: 88 QT: 364 QTc: 478 Central: P: 69 VT: 186 QRS: 39 T: 61 INTERPRETIVE STATEMENTS: Sinus tachycardia Otherwise normal ECG Compared to ECG 01/23/2017 10:15:48 Sinus rhythm no longer present Electronically Signed On 12-11-17 04:16:52 CDT by Jacob Vivas
[2017-12-11] MEDS ORDERED: NA CHLORIDE 0.9% 500 ML IV ONE (04:27)
[2017-12-11] MEDS: NA CHLORIDE 0.9% 1,000 ML IV SCH ×3 (04:30→17:11)
--- NOTE | 2017-12-11 04:35 | P.PN ---
Date of Service: 12/11/17 The patient overnight become more confused and agitated, Temp was 103.7. He received Tylenol PO, then temp decreased to normal limits. Subsequently his BP gradually decreased to 60's/40's. Despite NS bolus, His blood pressure remain low. The patient will be transfer to ICU due to septic shock, will place a central line and start vasopressors. Will continue empiric treatment with Vancomycin and Zosyn.
[2017-12-11] MEDS ORDERED: NOREPINEPHRINE 4 MG/4 ML VIAL ONE (04:49)
[2017-12-11] MEDS ORDERED: D5W 250 ML IV ONE (04:49)
[2017-12-11] MEDS ORDERED: NOREPINEPHRINE 4 MG in D5W 250 ML IV PRN (05:40)
--- NOTE | 2017-12-11 06:00 | P.OP ---
Date of Service: 12/11/17 Central line placement procedure note A time-out was completed verifying correct patient, procedure, site and positioning. The patient was placed in a dependent position appropriate for central line placement based on the vein to be cannulated. The patients right groin was prepped and draped in sterile fashion. 1% Lidocaine was used to anesthetize the surrounding skin area. A triple lumen 9-Stateless Cordis catheter was introduced into the the femoral vein using the Seldinger technique. The catheter was threaded smoothly over the guide wire and appropriate blood return was obtained. Each lumen of the catheter was evacuated of air and flushed with sterile saline. The catheter was then sutured in place to the skin and a sterile dressing applied. Perfusion to the extremity distal to the point of catheter insertion was checked and found to be adequate. Estimated Blood Loss: 5 cc The patient tolerated the procedure well and there were no complications.
[2017-12-11 06:01] LABS: Albumin 2.9 g/dL (3.4-5.0); Magnesium 1.6 mg/dL (1.8-2.4); Phosphorus 1.2 mg/dL (2.5-4.9); Protein, Total 5.3 g/dL (6.4-8.2)
[2017-12-11 06:02] LABS: Potassium 2.8 mmol/L (3.5-5.1)
[2017-12-11] MEDS ORDERED: NA CHLORIDE 0.9% 1,000 ML IV ONE (06:09)
[2017-12-11] MEDS ORDERED: MAGNESIUM SULFATE 1 gm IVPB 1 GM/100 ML BAG IV ONE (06:15)
[2017-12-11] MEDS ORDERED: POTASSIUM PHOS IN 0.9 % NACL 15 MMOL/250 ML BAG IV ONE (06:15)
[2017-12-11 06:23] LABS: Absolute Lymphocytes (CBC) 0.3 K/uL (0.7-4.9); Absolute Monocytes 0.2 K/uL (0.1-1.3); Hematocrit 29.4 % (39.6-49.0); Lymphocytes % 3.4 % (15.3-44.8); MCH 34.1 pg (27.0-35.0); MCV 97.2 fL (80-100); MPV 8.5 fL (7.6-11.3); Monocytes % 2.4 % (3.3-12.3); RBC Red Blood Cell Count 3.03 M/uL (4.33-5.43)
[2017-12-11] MEDS: KCL 20 MEQ/100 mL IVPB 20 MEQ/100 ML BAG IV SCH ×2 (06:37→10:09)
[2017-12-11 06:43] LABS: Albumin 2.9 g/dL (3.4-5.0); Magnesium 1.7 mg/dL (1.8-2.4); Phosphorus 1.6 mg/dL (2.5-4.9); Potassium 3.1 mmol/L (3.5-5.1); Protein, Total 5.5 g/dL (6.4-8.2)
[2017-12-11 09:28] LABS: Blood Morphology Comment NOT SEEN (NOT SEEN); Platelet Estimate DECR; Toxic Granulation 1+; Urine White Blood Cell Casts OK
[2017-12-11] MEDS ORDERED: VANCOMYCIN 1.75 GM in NA CHLORIDE 0.9% 500 ML IVPB SCH (10:00)
[2017-12-11] MEDS: ENOXAPARIN 40 MG/0.4 ML SQ SCH (10:09)
[2017-12-11] MEDS: PIPER/TAZO/NS 3.375gm 3.375 GM/100 ML BAG IVPB SCH ×2 (10:10→21:17)
[2017-12-11] MEDS: CLOPIDOGREL 75 MG TABLET PO SCH (10:14)
[2017-12-11] MEDS: ESCITALOPRAM 20 MG TAB PO SCH (10:14)
--- NOTE | 2017-12-11 12:17 | P.PN ---
Subjective Date of Service: 12/11/17 Primary Care Provider: Clarisse Chief Complaint: Septic shock Patient seen and examined at bedside with RN. Chart reviewed. Overnight patient had been transferred to the ICU due to hypotension secondary to septic shock. This morning patient has been successfully weaned off of Levophed. Alert and oriented x3 and has been doing much better than before. No other complaints to offer this morning. Review of Systems 10-point ROS is otherwise unremarkable Physical Examination - Vital Signs Temperature: 101 F Blood Pressure: 103/69 Pulse: 98 Respirations: 17 Pulse Ox (%): 96 - Physical Exam General: Alert, In no apparent distress HEENT: Atraumatic, PERRLA, EOMI Neck: Supple, JVD not distended Respiratory: Clear to auscultation bilaterally, Normal air movement Cardiovascular: Regular rate/rhythm, Normal S1 S2 Gastrointestinal: Normal bowel sounds, No tenderness Musculoskeletal: No tenderness Integumentary: No rashes Neurological: Normal speech, Normal tone, Normal affect Lymphatics: No axilla or inguinal lymphadenopathy - Studies Laboratory Data (last 24 hrs) 12/10/17 12:30: PT 15.8 H, INR 1.34, APTT 28.9 12/10/17 12:30: WBC 5.6, Hgb 12.8 L, Hct 36.7 L, Plt Count 132 L 12/10/17 12:30: Sodium 136, Potassium 3.0 L, BUN 23 H, Creatinine 1.60 H, Glucose 187 H, Magnesium 1.3 L*, Total Bilirubin 2.1 H, AST 16, ALT 22, Alkaline Phosphatase 60 Medications List Reviewed: Yes Assessment And Plan - Current Problems (Diagnosis) (1) Sepsis Onset Date: 09/17/17 Current Visit: No Status: Acute Plan: Sever Sepsis with TAMIKO and elevated LA. most likely 2.2 to UTI and possible bactermia -IV vanc and zosyn -Blood culture and urine culture + for gram - rods -IV fluids, Midodrine and Fludrocortisone for hypotension -Repeat Lab work in AM and f.u with Culture Qualifiers: Sepsis type: sepsis due to unspecified organism Qualified Code(s): A41.9 - Sepsis, unspecified organism (2) UTI (urinary tract infection) Onset Date: 12/11/17 Current Visit: Yes Status: Acute Plan: Acute Cystitis -Urine Culture + for gram - rods -IV vanc and zosyn (3) ATMIKO (acute kidney injury) Onset Date: 12/11/17 Current Visit: Yes Status: Acute Plan: TAMIKO with elevated BUN.CR. Most likely dehydration vs Sepsis -IV fluids for now (4) Diabetes mellitus Onset Date: 09/17/17 Current Visit: No Status: Chronic Plan: ISS Qualifiers: Diabetes mellitus type: type 2 Diabetes mellitus jail insulin use: without jail use Diabetes mellitus complication status: with unspecified complications Qualified Code(s): E11.8 - Type 2 diabetes mellitus with unspecified complications - Plan Currently awaiting clinical improvement at this time. Will continue with IV antibiotics. Will follow up cultures tomorrow morning. Will keep patient denies heat today and hopefully transferred out to the regular floor tomorrow morning. Discharge Plan: Home Plan to discharge in: 48 Hours - Code Status/Comfort Care Code Status Assessed: Yes Critical Care: No
[2017-12-11] MEDS: FLUDROCORTISONE 0.1 MG TAB PO SCH (12:33)
[2017-12-11] MEDS: MIDODRINE HCL 5 MG TABLET PO SCH ×2 (12:33→21:17)
[2017-12-11] MEDS: CARBIDOPA/LEVODOPA 25/250 TAB PO SCH ×3 (12:33→21:18)
[2017-12-11] MEDS: lamoTRIgine 100 MG TAB PO SCH (21:17)
[2017-12-11] MEDS: ATORVASTATIN 10 MG TAB PO SCH (21:17)
[2017-12-11] MEDS: PRAMIPEXOLE 0.25 MG TAB PO SCH (21:18)
[2017-12-12] MEDS: NA CHLORIDE 0.9% 1,000 ML IV SCH ×2 (04:31→17:59)
[2017-12-12 05:20] LABS: Absolute Lymphocytes (CBC) 0.5 K/uL (0.7-4.9); Absolute Monocytes 0.3 K/uL (0.1-1.3); Absolute Neutrophil 9.7 K/uL (1.8-8.0); Basophils % 0.1 % (0-1.3); Eosinophils % 1.5 % (0-4.4); Hematocrit 29.3 % (39.6-49.0); Lymphocytes % 5.1 % (15.3-44.8); MCH 34.1 pg (27.0-35.0); MCV 95.3 fL (80-100); Monocytes % 2.8 % (3.3-12.3); RBC Red Blood Cell Count 3.08 M/uL (4.33-5.43)
[2017-12-12 05:42] LABS: Albumin 2.6 g/dL (3.4-5.0); Bilirubin Total 1.4 mg/dL (0.2-1.0); Magnesium 2.3 mg/dL (1.8-2.4); Potassium 3.3 mmol/L (3.5-5.1); Protein, Total 5.5 g/dL (6.4-8.2)
--- NOTE | 2017-12-12 08:44 | ECHO ---
HEIGHT: 6 ft 0 in WEIGHT: 230 lb 3 oz DATE OF STUDY: 12/11/[address]: Alla Ying MD 2-DIMENSIONAL: YES M.MODE: YES DOPPLER: NO COLOR FLOW: NO TDS: YES PORTABLE: NO DEFINITY: NO BUBBLE STUDY: NO DIAGNOSIS: RULE OUT ENDOCARDITIS CARDIAC HISTORY: CATHERIZATION: YES SURGERY: NO PROSTHETIC VALVE: NO PACEMAKER: NO MEASUREMENTS (cm) DIASTOLIC (NORMALS) SYSTOLIC (NORMALS) IVSd 1.4 (0.6-1.2) LA Diam 4.3 (1.9-4.0) LVEF 54% LVIDd 4.1 (3.5-5.7) LVIDs 3.0 (2.0-3.5) %FS 28% LVPWd 1.5 (0.6-1.2) Ao Diam 3.2 (2.0-3.7) 2 DIMENSIONAL ASSESSMENT: RIGHT ATRIUM: NORMAL LEFT ATRIUM: DILATED RIGHT VENTRICLE: NORMAL LEFT VENTRICLE: NORMAL TRICUSPID VALVE: NORMAL MITRAL VALVE: NORMAL PULMONIC VALVE: NORMAL AORTIC VALVE: NORMAL PERICARDIAL EFFUSION: NONE AORTIC ROOT: NORMAL LEFT VENTRICULAR WALL MOTION: NORMAL DOPPLER/COLOR FLOW: NOT REQUESTED. COMMENTS: TECHNICALLY DIFFICULT STUDY. NO EFFUSION. MILD LEFT ATRIAL ENLARGEMENT. NORMAL LEFT VENTRICULAR EJECTION FRACTION. NO VEGETATION. TECHNOLOGIST: Greg BARTHOLOMEW
[2017-12-12] MEDS: KCL 20 MEQ/100 mL IVPB 20 MEQ/100 ML BAG IV SCH ×2 (08:52→10:58)
[2017-12-12] MEDS: PIPER/TAZO/NS 3.375gm 3.375 GM/100 ML BAG IVPB SCH (08:52)
[2017-12-12] MEDS: PRAMIPEXOLE 0.25 MG TAB PO SCH ×2 (09:00→20:11)
[2017-12-12] MEDS: LORATADINE 10 MG TAB PO SCH (09:00)
[2017-12-12] MEDS: MIDODRINE HCL 5 MG TABLET PO SCH ×3 (09:00→20:11)
[2017-12-12] MEDS: ESCITALOPRAM 20 MG TAB PO SCH (09:00)
[2017-12-12] MEDS: FLUDROCORTISONE 0.1 MG TAB PO SCH (09:00)
[2017-12-12] MEDS: CLOPIDOGREL 75 MG TABLET PO SCH (09:00)
[2017-12-12] MEDS: lamoTRIgine 100 MG TAB PO SCH ×2 (09:00→20:11)
[2017-12-12] MEDS: CARBIDOPA/LEVODOPA 25/250 TAB PO SCH ×4 (09:01→20:10)
[2017-12-12] MEDS: ENOXAPARIN 40 MG/0.4 ML SQ SCH (09:01)
[2017-12-12 10:01] LABS: Blood Morphology Comment NOT SEEN (NOT SEEN); Platelet Estimate DECR; Urine White Blood Cell Casts OK
--- NOTE | 2017-12-12 12:07 | P.PN ---
Subjective Date of Service: 12/12/17 Primary Care Provider: Clarisse Chief Complaint: Septic shock Patient seen and examined at bedside with RN. Chart reviewed. -no complaints to offer overnight and did well overall. Was not requiring any further pressors for last 24 hr. Review of Systems 10-point ROS is otherwise unremarkable Physical Examination - Vital Signs Temperature: 97.2 F Blood Pressure: 114/67 Pulse: 75 Respirations: 15 Pulse Ox (%): 98 - Physical Exam General: Alert, In no apparent distress HEENT: Atraumatic, PERRLA, EOMI Neck: Supple, JVD not distended Respiratory: Clear to auscultation bilaterally, Normal air movement Cardiovascular: Regular rate/rhythm, Normal S1 S2 Gastrointestinal: Normal bowel sounds, No tenderness Musculoskeletal: No tenderness Integumentary: No rashes Neurological: Normal speech, Normal tone, Normal affect Lymphatics: No axilla or inguinal lymphadenopathy - Studies Microbiology Data (last 24 hrs): 12/10/17 14:00 Clean Catch Urine Hector Count - Final >100,000 CFU/ML. 12/10/17 14:00 Clean Catch Urine - Final Klebsiella Pneumoniae Medications List Reviewed: Yes Assessment And Plan - Current Problems (Diagnosis) (1) Sepsis Onset Date: 09/17/17 Current Visit: No Status: Acute Plan: Sever Sepsis with TAIMKO and elevated LA. most likely 2.2 to UTI and possible bacteremia -Currently on IV vanc and zosyn. Will DC and start Levaquin at this time -Blood culture and urine culture + for klebsiella sensitive to levaquin -IV fluids, Midodrine and Fludrocortisone -Repeat Lab work in AM Qualifiers: Sepsis type: sepsis due to unspecified organism Qualified Code(s): A41.9 - Sepsis, unspecified organism (2) UTI (urinary tract infection) Onset Date: 12/11/17 Current Visit: Yes Status: Acute Plan: Acute Cystitis -Urine Culture + for Klebisella -Currently on IV vanc and zosyn. Will DC and start Levaquin at this time Qualifiers: Urinary tract infection type: acute cystitis Hematuria presence: without hematuria Qualified Code(s): N30.00 - Acute cystitis without hematuria (3) TAMIKO (acute kidney injury) Onset Date: 12/11/17 Current Visit: Yes Status: Acute Plan: TAMIKO with elevated BUN.CR. Most likely dehydration vs Sepsis -IV fluids for now -Improved today (4) Diabetes mellitus Onset Date: 09/17/17 Current Visit: No Status: Chronic Plan: ISS Qualifiers: Diabetes mellitus type: type 2 Diabetes mellitus fci insulin use: without fci use Diabetes mellitus complication status: with unspecified complications Qualified Code(s): E11.8 - Type 2 diabetes mellitus with unspecified complications - Plan Currently awaiting clinical improvement at this time. Will continue with IV antibiotics. Discharge Plan: Home Plan to discharge in: 24 Hours - Code Status/Comfort Care Code Status Assessed: Yes Critical Care: No
[2017-12-12] MEDS: Levofloxacin500mg IV 500 MG/100 ML BAG IV SCH (13:21)
[2017-12-12] MEDS ORDERED: KCL 20 MEQ/100 mL IVPB 20 MEQ/100 ML BAG IV SCH (16:00)
[2017-12-12] MEDS: ATORVASTATIN 10 MG TAB PO SCH (20:10)
[2017-12-13] MEDS: NA CHLORIDE 0.9% 1,000 ML IV SCH ×2 (04:26→13:04)
[2017-12-13 05:30] LABS: Absolute Lymphocytes (CBC) 0.6 K/uL (0.7-4.9); Absolute Monocytes 0.2 K/uL (0.1-1.3); Absolute Neutrophil 9.4 K/uL (1.8-8.0); Basophils % 0.2 % (0-1.3); Eosinophils % 0.7 % (0-4.4); Hematocrit 28.8 % (39.6-49.0); Lymphocytes % 6.2 % (15.3-44.8); MCH 33.8 pg (27.0-35.0); MCV 97.1 fL (80-100); MPV 9.3 fL (7.6-11.3); Monocytes % 2.1 % (3.3-12.3); RBC Red Blood Cell Count 2.96 M/uL (4.33-5.43)
[2017-12-13 05:50] LABS: ALT/SGPT 11 U/L (12-78); AST/SGOT 59 U/L (15-37); Albumin 2.4 g/dL (3.4-5.0); Alkaline Phosphatase 58 U/L (45-117); BUN Blood Urea Nitrogen 19 mg/dL (7-18); Bicarbonate 26 mmol/L (21-32); Bilirubin Total 0.8 mg/dL (0.2-1.0); Glucose Level 111 mg/dL (74-106); Phosphorus 1.6 mg/dL (2.5-4.9); Potassium 3.7 mmol/L (3.5-5.1); Protein, Total 5.3 g/dL (6.4-8.2); Sodium Level 143 mmol/L (136-145)
[2017-12-13] MEDS ORDERED: POTASSIUM PHOS IN 0.9 % NACL 15 MMOL/250 ML BAG IV ONE (06:26)
[2017-12-13] MEDS: ESCITALOPRAM 20 MG TAB PO SCH (08:16)
[2017-12-13] MEDS: ENOXAPARIN 40 MG/0.4 ML SQ SCH (08:16)
[2017-12-13] MEDS: CLOPIDOGREL 75 MG TABLET PO SCH (08:17)
[2017-12-13] MEDS: LORATADINE 10 MG TAB PO SCH (08:17)
[2017-12-13] MEDS: MIDODRINE HCL 5 MG TABLET PO SCH ×3 (08:18→21:00)
[2017-12-13] MEDS: lamoTRIgine 100 MG TAB PO SCH ×2 (08:18→20:39)
[2017-12-13] MEDS: PRAMIPEXOLE 0.25 MG TAB PO SCH ×2 (08:18→20:39)
[2017-12-13] MEDS: FLUDROCORTISONE 0.1 MG TAB PO SCH (08:18)
[2017-12-13] MEDS: CARBIDOPA/LEVODOPA 25/250 TAB PO SCH ×4 (09:42→20:39)
[2017-12-13] MEDS: Levofloxacin500mg IV 500 MG/100 ML BAG IV SCH (12:56)
--- NOTE | 2017-12-13 16:59 | P.PN ---
Subjective Date of Service: 12/13/17 Primary Care Provider: Clarisse Chief Complaint: Septic shock Patient seen and examined at bedside with RN. Chart reviewed. -no complaints to offer overnight and did well overall. -doing well overall. Working with physical therapy. Does still appear to be weak Review of Systems 10-point ROS is otherwise unremarkable Physical Examination - Vital Signs Temperature: 97.2 F Blood Pressure: 130/77 Pulse: 69 Respirations: 17 Pulse Ox (%): 100 - Physical Exam General: Alert, In no apparent distress HEENT: Atraumatic, PERRLA, EOMI Neck: Supple, JVD not distended Respiratory: Clear to auscultation bilaterally, Normal air movement Cardiovascular: Regular rate/rhythm, Normal S1 S2 Gastrointestinal: Normal bowel sounds, No tenderness Musculoskeletal: No tenderness Integumentary: No rashes Neurological: Normal speech, Normal tone, Normal affect Lymphatics: No axilla or inguinal lymphadenopathy - Studies Medications List Reviewed: Yes Assessment And Plan - Current Problems (Diagnosis) (1) Sepsis Onset Date: 09/17/17 Current Visit: No Status: Acute Plan: Sever Sepsis with TAMIKO and elevated LA. most likely 2.2 to UTI and bacteremia -urine culture positive for Klebsiella blood culture positive for have Klebsiella both of which were sensitive to Levaquin -patient switched to IV Levaquin at this time Qualifiers: Sepsis type: sepsis due to unspecified organism Qualified Code(s): A41.9 - Sepsis, unspecified organism (2) UTI (urinary tract infection) Onset Date: 12/11/17 Current Visit: Yes Status: Acute Plan: Acute Cystitis -Urine Culture + for Klebisella -Levaquin at this time Qualifiers: Urinary tract infection type: acute cystitis Hematuria presence: without hematuria Qualified Code(s): N30.00 - Acute cystitis without hematuria (3) TAMIKO (acute kidney injury) Onset Date: 12/11/17 Current Visit: Yes Status: Acute Plan: TAMIKO with elevated BUN.CR. Most likely dehydration vs Sepsis -IV fluids for now -Improved today (4) Diabetes mellitus Onset Date: 09/17/17 Current Visit: No Status: Chronic Plan: ISS Qualifiers: Diabetes mellitus type: type 2 Diabetes mellitus snf insulin use: without intermediate school teacher use Diabetes mellitus complication status: with unspecified complications Qualified Code(s): E11.8 - Type 2 diabetes mellitus with unspecified complications - Plan Currently awaiting clinical improvement at this time. Patient to work with physical therapy to get little bit stronger to be discharged back to [facility] in 24-48 hr. Continue Levaquin will switch to p.o. once ready for discharge home Discharge Plan: Home Plan to discharge in: 24 Hours - Code Status/Comfort Care Code Status Assessed: Yes Critical Care: No
[2017-12-13] MEDS: TAMSULOSIN 0.4 MG SR CAP PO SCH (20:39)
[2017-12-13] MEDS: ATORVASTATIN 10 MG TAB PO SCH (20:39)
[2017-12-14 05:54] LABS: BUN Blood Urea Nitrogen 15 mg/dL (7-18); Bicarbonate 27 mmol/L (21-32); Glucose Level 113 mg/dL (74-106); Phosphorus 2.3 mg/dL (2.5-4.9); Potassium 3.5 mmol/L (3.5-5.1); Sodium Level 146 mmol/L (136-145)
[2017-12-14] MEDS ORDERED: POTASSIUM PHOS IN 0.9 % NACL 15 MMOL/250 ML BAG IV ONE (06:00)
[2017-12-14] MEDS: lamoTRIgine 100 MG TAB PO SCH ×2 (09:31→21:32)
[2017-12-14] MEDS: LORATADINE 10 MG TAB PO SCH (09:32)
[2017-12-14] MEDS: CLOPIDOGREL 75 MG TABLET PO SCH (09:32)
[2017-12-14] MEDS: ESCITALOPRAM 20 MG TAB PO SCH (09:32)
[2017-12-14] MEDS: FLUDROCORTISONE 0.1 MG TAB PO SCH (09:32)
[2017-12-14] MEDS: ENOXAPARIN 40 MG/0.4 ML SQ SCH (09:32)
[2017-12-14] MEDS: PRAMIPEXOLE 0.25 MG TAB PO SCH ×2 (09:32→21:32)
[2017-12-14] MEDS: CARBIDOPA/LEVODOPA 25/250 TAB PO SCH ×4 (09:32→21:33)
[2017-12-14] MEDS: MIDODRINE HCL 5 MG TABLET PO SCH ×3 (10:18→21:32)
--- NOTE | 2017-12-14 13:41 | P.PN ---
Subjective Date of Service: 12/14/17 Primary Care Provider: Clarisse Chief Complaint: Septic shock feels better, no fever chills. Poor apetitie Physical Examination - Vital Signs Temperature: 98.4 F Blood Pressure: 141/73 Pulse: 66 Respirations: 20 Pulse Ox (%): 95 - Physical Exam General: Alert, In no apparent distress HEENT: Atraumatic, PERRLA, EOMI Neck: Supple, JVD not distended Respiratory: Clear to auscultation bilaterally, Normal air movement Cardiovascular: Regular rate/rhythm, Normal S1 S2 Gastrointestinal: Normal bowel sounds, No tenderness Musculoskeletal: No tenderness Integumentary: No rashes Neurological: Normal speech, Normal tone, Normal affect Lymphatics: No axilla or inguinal lymphadenopathy - Studies Microbiology Data (last 24 hrs): 12/10/17 12:30 Blood - Blood Aerobic Blood Culture - Final Klebsiella Pneumoniae 12/10/17 12:30 Blood - Blood Gram Stain - Final 12/10/17 12:30 Blood - Blood Anaerobic Blood Culture - Final Klebsiella Pneumoniae 12/10/17 12:30 Blood - Blood Gram Stain - Final Medications List Reviewed: Yes Assessment And Plan - Plan - Current Problems (Diagnosis) (1) Sepsis Onset Date: 09/17/17 Current Visit: No Status: Acute Plan: Sever Sepsis 2.2 to UTI and bacteremia -urine culture positive for Klebsiella blood culture positive for Klebsiella both of which were sensitive to Levaquin -patient switched to IV Levaquin Qualifiers: Sepsis type: sepsis due to unspecified organism Qualified Code(s): A41.9 - Sepsis, unspecified organism (2) UTI (urinary tract infection) Onset Date: 12/11/17 Current Visit: Yes Status: Acute Plan: Acute Cystitis -Urine Culture + for Klebisella -Levaquin at this time Qualifiers: Urinary tract infection type: acute cystitis Hematuria presence: without hematuria Qualified Code(s): N30.00 - Acute cystitis without hematuria (3) TAMIKO (acute kidney injury) Onset Date: 12/11/17 Current Visit: Yes Status: Acute Plan: TAMIKO with elevated BUN.CR. Most likely dehydration vs Sepsis -IV fluids for now -Improved today (4) Diabetes mellitus Onset Date: 09/17/17 Current Visit: No Status: Chronic Plan: ISS Qualifiers: Diabetes mellitus type: type 2 Diabetes mellitus skilled nursing insulin use: without skilled nursing use Diabetes mellitus complication status: with unspecified complications Qualified Code(s): E11.8 - Type 2 diabetes mellitus with unspecified complications - Plan ---Continue Levaquin IV; and will switch to p.o. once ready for discharge home ---On physical therapy ---Cont Flomax for U retention and Galindo is in place ---discharged back to [facility] in 24-48 hr. Discharge Plan: [facility] Plan to discharge in: 24 Hours - Code Status/Comfort Care Code Status Assessed: Yes Critical Care: No
[2017-12-14] MEDS: Levofloxacin500mg IV 500 MG/100 ML BAG IV SCH (13:48)
[2017-12-14] MEDS: TAMSULOSIN 0.4 MG SR CAP PO SCH (21:33)
[2017-12-14] MEDS: ATORVASTATIN 10 MG TAB PO SCH (21:33)
[2017-12-15 04:36] LABS: Absolute Lymphocytes (CBC) 0.9 K/uL (0.7-4.9); Absolute Monocytes 0.2 K/uL (0.1-1.3); Absolute Neutrophil 3.7 K/uL (1.8-8.0); Basophils % 0.3 % (0-1.3); Eosinophils % 1.4 % (0-4.4); Hematocrit 28.5 % (39.6-49.0); Lymphocytes % 17.7 % (15.3-44.8); MCH 33.5 pg (27.0-35.0); MCV 95.9 fL (80-100); MPV 8.7 fL (7.6-11.3); Monocytes % 4.6 % (3.3-12.3); RBC Red Blood Cell Count 2.98 M/uL (4.33-5.43)
[2017-12-15 04:49] LABS: ALT/SGPT 9 U/L (12-78); AST/SGOT 27 U/L (15-37); Albumin 2.4 g/dL (3.4-5.0); Alkaline Phosphatase 70 U/L (45-117); BUN Blood Urea Nitrogen 11 mg/dL (7-18); Bicarbonate 27 mmol/L (21-32); Bilirubin Total 0.8 mg/dL (0.2-1.0); Glucose Level 115 mg/dL (74-106); Phosphorus 2.7 mg/dL (2.5-4.9); Potassium 3.1 mmol/L (3.5-5.1); Protein, Total 5.4 g/dL (6.4-8.2); Sodium Level 143 mmol/L (136-145)
[2017-12-15] MEDS ORDERED: POTASSIUM 25 MEQ EFFERV TAB PO ONE (06:00)
[2017-12-15] MEDS: ENOXAPARIN 40 MG/0.4 ML SQ SCH (09:00)
[2017-12-15] MEDS: MIDODRINE HCL 5 MG TABLET PO SCH ×3 (09:28→20:25)
[2017-12-15] MEDS: lamoTRIgine 100 MG TAB PO SCH ×2 (09:29→20:26)
[2017-12-15] MEDS: CLOPIDOGREL 75 MG TABLET PO SCH (09:29)
[2017-12-15] MEDS: LORATADINE 10 MG TAB PO SCH (09:29)
[2017-12-15] MEDS: ESCITALOPRAM 20 MG TAB PO SCH (09:29)
[2017-12-15] MEDS: FLUDROCORTISONE 0.1 MG TAB PO SCH (09:30)
[2017-12-15] MEDS: CARBIDOPA/LEVODOPA 25/250 TAB PO SCH ×4 (09:30→20:27)
[2017-12-15] MEDS: PRAMIPEXOLE 0.25 MG TAB PO SCH ×2 (09:33→20:24)
[2017-12-15] MEDS: SMZ./TMP. 800/160 MG TABLET PO SCH ×2 (11:06→20:26)
[2017-12-15] MEDS: levoFLOXacin 500 MG TAB PO SCH (11:06)
[2017-12-15] MEDS: LORAZEPAM 0.5 MG TABLET PO PRN (13:46)
[2017-12-15] MEDS ORDERED: MAGNESIUM CITRATE 300 ML BOT PO ONE (15:00)
[2017-12-15] MEDS: DOCUSATE NA 100 MG CAP PO SCH ×2 (15:40→20:27)
--- NOTE | 2017-12-15 15:55 | RAD REPORT ---
EXAM DESCRIPTION: RAD - Abdomen 1 View (KUB) - 12/15/2017 2:54 pm CLINICAL HISTORY: Abdominal pain, possible foreign body COMPARISON: None. FINDINGS: No rectal foreign body identified. Phleboliths are present. There is a right femoral venou s access catheter. Bowel gas pattern is nonspecific. No obstruction, free air or pneumatosis. No susp icious calcifications. Disc and bony degenerative changes present. IMPRESSION: No rectal foreign body.
--- NOTE | 2017-12-15 18:31 | RAD REPORT ---
EXAM DESCRIPTION: CT - Abdomen Pelvis Wo Contrast - 12/15/2017 5:36 pm CLINICAL HISTORY: Abdominal pain, pelvic pain, possible rectal foreign body COMPARISON: CT study September 16, 2017 TECHNIQUE: Axial [address] imaging of the abdomen and pelvis was performed without IV contrast. No IV contrast was given because of allergy, abnormal renal function, patient refusal or physician re quest. No oral contrast administered. All CT scans are performed using dose optimization technique as appropriate and may include automated exposure control or mA/KV adjustment according to patient size. FINDINGS: Small to moderate bilateral pleural effusions are present with bilateral lower lobe atelec tasis. The liver, spleen and pancreas show no suspicious findings on non-contrast imaging. Multiple small ga llstones layer in the dependent portion of the gallbladder. No acute gallbladder or biliary tree find ing. Mild to moderate bilateral hydronephrosis and hydroureter present to the pelvic inlet level. Urinary bladder is distended. There is no obstructing calculus. Hydronephrosis is believed to be functional f rom the enlarged bladder and extrinsic compression of the distal ureters. Patient has a significantly enlarged prostate gland projecting into the bladder base. Prostate gland measures 8.5 x 7.1 cm. A Fo amy catheter is in place. The balloon tip of the Galindo catheter has been inflated within the prostati c urethra. The catheter does not reach the level of the urinary bladder. No significant adrenal find ing. Isodense renal masses and pyelonephritis cannot be excluded in the absence of IV contrast. The u rinary bladder is without significant finding. No gastric dilatation or gastric wall thickening. No small bowel or appendix abnormality. From cecum through sigmoid colon there is no abnormal stool volume or acute colon process. Large amount of stool distends the rectum. No rectal wall mass. There is no rectal foreign body identifiable. Edema or str anding is present in the perirectal fat. No free air, free fluid or inflammatory stranding elsewhere. No hernia, mass or bulky lymphadenopath y. Right femoral venous access catheter is in place. Disc and bony degenerative changes are present. No pathologic bone process. The positioning of the Galindo catheter and the absence of rectal foreign body findings telephoned to Luis islas at the fourth floor nurses station 6:22 p.m.. IMPRESSION: Large stool volume distends the rectum. There is no rectal foreign body. No rectal wall thickening or mass. There is stranding in the perirectal fat. The patient's Galindo catheter has been inflated within the prostatic urethra. Catheter does not reach the urinary bladder. Prostate gland is quite enlarged measuring 8.5 x 7.1 cm. [id number] bilateral hydronephrosis to the pelvic inlet level. No obstructing calculi. This is believed to be the affects of extrinsic compression of the ureters by the enlarged urinary bladder. Small to moderate bilateral pleural effusions with lung base atelectasis. Full assessment is limited is the absence of IV contrast.
[2017-12-15] MEDS ORDERED: LORazepam 2 MG/ML VIAL IV PRN (18:55)
--- NOTE | 2017-12-15 18:58 | P.PN ---
Subjective Date of Service: 12/15/17 Primary Care Provider: Clarisse Chief Complaint: Septic shock more combative sowmya today, pulled Galindo, claims he has a fork in rectum Physical Examination - Vital Signs Temperature: 98.1 F Blood Pressure: 164/77 Pulse: 67 Respirations: 20 Pulse Ox (%): 94 - Physical Exam General: Alert, In no apparent distress, Oriented x2 HEENT: Atraumatic, PERRLA, EOMI Neck: Supple, JVD not distended Respiratory: Clear to auscultation bilaterally, Normal air movement Cardiovascular: Regular rate/rhythm, Normal S1 S2 Gastrointestinal: Normal bowel sounds, No tenderness Musculoskeletal: No tenderness Integumentary: No rashes Neurological: Normal speech, Normal tone, Normal affect Lymphatics: No axilla or inguinal lymphadenopathy - Studies Microbiology Data (last 24 hrs): 12/10/17 13:20 Blood - Blood Aerobic Blood Culture - Final No growth in 5 days. 12/10/17 13:20 Blood - Blood Anaerobic Blood Culture - Final No growth in 5 days. Medications List Reviewed: Yes Assessment And Plan - Plan - Current Problems (Diagnosis) (1) Sepsis Onset Date: 09/17/17 Current Visit: No Status: Acute Plan: Sever Sepsis 2.2 to UTI and bacteremia -urine culture positive for Klebsiella blood culture positive for Klebsiella both of which were sensitive to Levaquin -patient switched to IV Levaquin Qualifiers: Sepsis type: sepsis due to unspecified organism Qualified Code(s): A41.9 - Sepsis, unspecified organism (2) UTI (urinary tract infection) Onset Date: 12/11/17 Current Visit: Yes Status: Acute Plan: Acute Cystitis -Urine Culture + for Klebisella -Levaquin at this time Qualifiers: Urinary tract infection type: acute cystitis Hematuria presence: without hematuria Qualified Code(s): N30.00 - Acute cystitis without hematuria (3) TAMIKO (acute kidney injury) Onset Date: 12/11/17 Current Visit: Yes Status: Acute Plan: TAMIKO with elevated BUN.CR. Most likely dehydration vs Sepsis -IV fluids for now -Improved today (4) Diabetes mellitus Onset Date: 09/17/17 Current Visit: No Status: Chronic Plan: ISS Qualifiers: Diabetes mellitus type: type 2 Diabetes mellitus senior care insulin use: without senior care use Diabetes mellitus complication status: with unspecified complications Qualified Code(s): E11.8 - Type 2 diabetes mellitus with unspecified complications - Plan ---switch to p.o. once ready for discharge home ---On physical therapy ---Cont Flomax add Proscar --Reinsert Galindo ---discharged back to [facility] in 24-48 hr. Discharge Plan: [facility] Plan to discharge in: 24 Hours - Code Status/Comfort Care Code Status Assessed: Yes Critical Care: No
[2017-12-15] MEDS ORDERED: LORazepam 2 MG/ML VIAL IV ONE (19:00)
[2017-12-15] MEDS ORDERED: LORazepam 2 MG/ML VIAL ONE (19:02)
[2017-12-15] MEDS: FINASTERIDE 5 MG TAB PO SCH (20:25)
[2017-12-15] MEDS: ATORVASTATIN 10 MG TAB PO SCH (20:26)
[2017-12-15] MEDS ORDERED: WATER FOR INJ,STERILE 10 ML IM PRN (20:29)
[2017-12-15] MEDS ORDERED: ZIPRASIDONE MESYLA 20 MG/VIAL IM ONE (20:29)
[2017-12-15] MEDS: TAMSULOSIN 0.4 MG SR CAP PO SCH (20:51)
[2017-12-16 04:55] LABS: Potassium 3.5 mmol/L (3.5-5.1)
[2017-12-16] MEDS ORDERED: POTASSIUM 25 MEQ EFFERV TAB PO ONE (08:00)
[2017-12-16] MEDS: DOCUSATE NA 100 MG CAP PO SCH ×2 (08:39→21:37)
[2017-12-16] MEDS: MIDODRINE HCL 5 MG TABLET PO SCH ×2 (08:52→09:00)
[2017-12-16] MEDS: LORAZEPAM 0.5 MG TABLET PO PRN (08:53)
[2017-12-16] MEDS: PRAMIPEXOLE 0.25 MG TAB PO SCH ×3 (08:53→21:37)
[2017-12-16] MEDS: SMZ./TMP. 800/160 MG TABLET PO SCH ×3 (08:53→21:37)
[2017-12-16] MEDS: FLUDROCORTISONE 0.1 MG TAB PO SCH ×2 (08:53→09:00)
[2017-12-16] MEDS: LORATADINE 10 MG TAB PO SCH ×2 (08:53→09:00)
[2017-12-16] MEDS: CLOPIDOGREL 75 MG TABLET PO SCH ×2 (08:53→09:00)
[2017-12-16] MEDS: CARBIDOPA/LEVODOPA 25/250 TAB PO SCH ×5 (08:54→21:37)
[2017-12-16] MEDS: ESCITALOPRAM 20 MG TAB PO SCH ×2 (08:54→09:00)
[2017-12-16] MEDS: levoFLOXacin 500 MG TAB PO SCH ×2 (08:54→09:00)
[2017-12-16] MEDS: lamoTRIgine 100 MG TAB PO SCH ×3 (08:54→21:37)
--- NOTE | 2017-12-16 17:44 | P.PN ---
Subjective Date of Service: 12/16/17 Primary Care Provider: Clarisse Chief Complaint: Septic shock He is still combative confusuion today, refuses oral meds Physical Examination - Vital Signs Temperature: 985 F Blood Pressure: 160/77 Pulse: 73 Respirations: 18 Pulse Ox (%): 95 - Physical Exam General: Alert, In no apparent distress, Oriented x2 HEENT: Atraumatic, PERRLA, EOMI Neck: Supple, JVD not distended Respiratory: Clear to auscultation bilaterally, Normal air movement Cardiovascular: Regular rate/rhythm, Normal S1 S2 Gastrointestinal: Normal bowel sounds, No tenderness Musculoskeletal: No tenderness Integumentary: No rashes Neurological: Normal speech, Normal tone, Normal affect Lymphatics: No axilla or inguinal lymphadenopathy - Studies Microbiology Data (last 24 hrs): 12/10/17 13:20 Blood - Blood Aerobic Blood Culture - Final No growth in 5 days. 12/10/17 13:20 Blood - Blood Anaerobic Blood Culture - Final No growth in 5 days. Medications List Reviewed: Yes Assessment And Plan - Current Problems (Diagnosis) (1) UTI (urinary tract infection) Onset Date: 12/11/17 Current Visit: Yes Status: Acute Qualifiers: Urinary tract infection type: acute cystitis Hematuria presence: without hematuria Qualified Code(s): N30.00 - Acute cystitis without hematuria (2) Dementia Current Visit: Yes Status: Chronic Qualifiers: Alzheimer's disease onset: unspecified onset Dementia behavioral disturbance: with behavioral disturbance (3) Diabetes mellitus Onset Date: 09/17/17 Current Visit: No Status: Chronic Qualifiers: Diabetes mellitus type: type 2 Diabetes mellitus shelter insulin use: without shelter use Diabetes mellitus complication status: with unspecified complications Qualified Code(s): E11.8 - Type 2 diabetes mellitus with unspecified complications - Plan - Current Problems (Diagnosis) (1) Sepsis Onset Date: 09/17/17 Current Visit: No Status: Acute Plan: Sever Sepsis 2.2 to UTI and bacteremia -urine culture positive for Klebsiella blood culture positive for Klebsiella both of which were sensitive to Levaquin -patient switched to IV Levaquin Qualifiers: Sepsis type: sepsis due to unspecified organism Qualified Code(s): A41.9 - Sepsis, unspecified organism (2) UTI (urinary tract infection) Onset Date: 12/11/17 Current Visit: Yes Status: Acute Plan: Acute Cystitis -Urine Culture + for Tundemelonie FernandezJaimeerica at this time Qualifiers: Urinary tract infection type: acute cystitis Hematuria presence: without hematuria Qualified Code(s): N30.00 - Acute cystitis without hematuria (3) TAMIKO (acute kidney injury) Onset Date: 12/11/17 Current Visit: Yes Status: Acute Plan: TAMIKO with elevated BUN.CR. Most likely dehydration vs Sepsis -IV fluids for now -Improved today (4) Diabetes mellitus Onset Date: 09/17/17 Current Visit: No Status: Chronic Plan: ISS Qualifiers: Diabetes mellitus type: type 2 Diabetes mellitus shelter insulin use: without dining room attendant use Diabetes mellitus complication status: with unspecified complications Qualified Code(s): E11.8 - Type 2 diabetes mellitus with unspecified complications - Plan ---PO ABX ---On physical therapy ---Cont Flomax and Proscar ---Galindo ---Cons Dr Dugan ---discharged back to [facility] but needs social media coordinator to re-[place] Discharge Plan: Shelter Plan to discharge in: 24 Hours - Code Status/Comfort Care Code Status Assessed: Yes Critical Care: No
[2017-12-16] MEDS: TAMSULOSIN 0.4 MG SR CAP PO SCH (21:37)
[2017-12-16] MEDS: FINASTERIDE 5 MG TAB PO SCH (21:37)
[2017-12-16] MEDS: ATORVASTATIN 10 MG TAB PO SCH (21:37)
--- NOTE | 2017-12-16 23:09 | CON ---
Reason: Confusion. History: This is a 77-year-old gentleman whom I know he was admitted to the hospital on the 4th with sepsis and septic shock. Cultures are growing Klebsiella pneumoniae out of the blood as well as the urine. The patient was initially in the intensive care unit and transferred to the floor. While in the intensive care unit, he was very agitated and confused. He has been delirious, especially in th e evening actually aggressive and combative towards the nursing staff. CT scan of the brain on admis jeb demonstrated atrophy, chronic ischemic changes. The patient does not have any focal neurologic findings other than findings related to his Parkinson disease which are similar to prior examinations . He is improved somewhat presently. He is awake. He recognizes me. He knows his name. He is not agitated, not combative currently. There is a question of some renal insufficiency, and the patient had a central line, pulled out the IV, and so he is on p.o. Levaquin which the organism is sensitive to Levaquin. As I know the patient and his sister, who is his power of attorney general and primary caregiv er wanted to evaluate the patient while he is here, therefore consultation was requested. Past Medical History: Parkinson disease, orthostatic hypotension, diabetes, hyperlipidemia. Family History: Carcinoma in a sister who also has Parkinson disease. Social History: He does not drink. He is in assisted living currently. Normally independent with b asic activities of daily living. Review of Systems: General: Chronically ill. Eyes: Denies vision loss. Ears, Nose, Throat: No dysarthria. No aphasia. Cardiovascular: Orthostatic hypotension. GI: Negative. : Renal insufficiency. There was hydroureter on the CT yesterday. Urinary tract infection with s epsis. Neurologic: As noted. Psychiatric: He is on Lamictal for the psychiatric reasons that are unclear to myself. Endocrine: Diabetes. Hematologic: He has some anemia and thrombocytopenia currently. Physical Examination: Vital Signs: 98.5, blood pressure actually normal lying 160/77, respirations 18. General: He is awake, alert, oriented, still some slight intermittent confusion, but he is not comba tive or aggressive presently. Neurologic: Pupils reactive. Ocular motion full without nystagmus. Visual horvath full. Facial str ength and sensation are normal. Tongue protrudes evenly. Soft palate elevates symmetrically bilater ally. Extremity strength full. He has resting tremor, left greater than right, bradykinesia, and mo derate cogwheel rigidity, left greater than right. Sensation decreased symmetrically distally. Refl exes suppressed. Toes are neutral. Cerebellar exam demonstrates no ataxia given the degree of tremo r. Pertinent Laboratory Data: As noted in history of present illness. Impression: Delirium, sepsis, Parkinson disease. Plan: Would continue present treatment as we are doing. He is seems to be improving with supportive care. He is not back on the ProAmatine presently, although he is not standing and walking so orthos tatic hypotension is not going to be problematic in the supine position that he is in but would check orthostatic vitals prior to any discharge so we can determine if he needs to go out on the lower dos e of the ProAmatine, perhaps just 5 mg instead of 15. He is being seen by physical therapy while her e. There is a question if the patient needs to go to a half-way facility. Apparently, he [place] s not have enough skilled needs, so perhaps he could go to inpatient rehab. If he is having difficul ties with ambulating and to further recover from the sepsis, to go just back to assisted living with home health. Thank you for the consult. We will continue to follow with you. LETICIA Voice ID: [id number] Report ID: [id number]
[2017-12-17 05:01] LABS: BUN Blood Urea Nitrogen 9 mg/dL (7-18); Bicarbonate 29 mmol/L (21-32); Glucose Level 113 mg/dL (74-106); Potassium 3.4 mmol/L (3.5-5.1); Sodium Level 142 mmol/L (136-145)
[2017-12-17 05:05] LABS: Absolute Lymphocytes (CBC) 1.1 K/uL (0.7-4.9); Absolute Monocytes 0.3 K/uL (0.1-1.3); Absolute Neutrophil 6.8 K/uL (1.8-8.0); Basophils % 0.3 % (0-1.3); Eosinophils % 0.9 % (0-4.4); Lymphocytes % 12.9 % (15.3-44.8); MCH 34.2 pg (27.0-35.0); MCV 94.9 fL (80-100); MPV 8.1 fL (7.6-11.3); Monocytes % 3.1 % (3.3-12.3); RBC Red Blood Cell Count 3.16 M/uL (4.33-5.43)
[2017-12-17] MEDS ORDERED: POTASSIUM CL SA 10 MEQ TAB PO ONE ×2 (05:32→17:00)
[2017-12-17] MEDS: SMZ./TMP. 800/160 MG TABLET PO SCH (09:36)
[2017-12-17] MEDS: CARBIDOPA/LEVODOPA 25/250 TAB PO SCH ×4 (09:36→21:26)
[2017-12-17] MEDS: lamoTRIgine 100 MG TAB PO SCH ×2 (09:36→21:30)
[2017-12-17] MEDS: LORATADINE 10 MG TAB PO SCH (09:36)
[2017-12-17] MEDS: levoFLOXacin 500 MG TAB PO SCH (09:37)
[2017-12-17] MEDS: DOCUSATE NA 100 MG CAP PO SCH ×2 (09:37→21:25)
[2017-12-17] MEDS: CLOPIDOGREL 75 MG TABLET PO SCH (09:37)
[2017-12-17] MEDS: FLUDROCORTISONE 0.1 MG TAB PO SCH (09:37)
[2017-12-17] MEDS: ESCITALOPRAM 20 MG TAB PO SCH (09:37)
[2017-12-17] MEDS: PRAMIPEXOLE 0.25 MG TAB PO SCH ×2 (12:46→21:25)
--- NOTE | 2017-12-17 13:31 | P.PN ---
Subjective Date of Service: 12/17/17 Primary Care Provider: Clarisse Chief Complaint: Septic shock Patient seen and examined at bedside with RN. Chart reviewed. -no complaints to offer overnight and did well overall. -Working with physical therapy. -Does still appear to be weak -pending placement of this time Review of Systems 10-point ROS is otherwise unremarkable Physical Examination - Vital Signs Temperature: 98.5 F Blood Pressure: 126/58 Pulse: 61 Respirations: 16 Pulse Ox (%): 95 - Physical Exam General: Alert, Oriented x2, Demented HEENT: Atraumatic, PERRLA, EOMI Neck: Supple, JVD not distended Respiratory: Clear to auscultation bilaterally, Normal air movement Cardiovascular: Regular rate/rhythm, Normal S1 S2 Gastrointestinal: Normal bowel sounds, No tenderness Musculoskeletal: No tenderness Integumentary: No rashes Neurological: Normal tone, Normal affect, Abnormal speech, Dementia Lymphatics: No axilla or inguinal lymphadenopathy - Studies Medications List Reviewed: Yes Assessment And Plan - Current Problems (Diagnosis) (1) Sepsis Onset Date: 09/17/17 Current Visit: No Status: Acute Plan: Resovled now. Most likely 2.2 to UTI -urine + for Klebseilla and Blood + for klebseilla -On Levaquin PO at this time Qualifiers: Sepsis type: sepsis due to unspecified organism Qualified Code(s): A41.9 - Sepsis, unspecified organism (2) UTI (urinary tract infection) Onset Date: 12/11/17 Current Visit: Yes Status: Acute Plan: Acute Cystitis -Urine Culture + for Klebisella -Levaquin at this time Qualifiers: Urinary tract infection type: acute cystitis Hematuria presence: without hematuria Qualified Code(s): N30.00 - Acute cystitis without hematuria (3) TAMIKO (acute kidney injury) Onset Date: 12/11/17 Current Visit: Yes Status: Acute Plan: Resoved now (4) Diabetes mellitus Onset Date: 09/17/17 Current Visit: No Status: Chronic Plan: ISS Qualifiers: Diabetes mellitus type: type 2 Diabetes mellitus keno terminal operator insulin use: without [facility] use Diabetes mellitus complication status: with unspecified complications Qualified Code(s): E11.8 - Type 2 diabetes mellitus with unspecified complications - Plan Currently awaiting placement at this time. Patient was at an independent living facility however is currently too weak to go back to an independent living. Patient may benefit from [facility] facility versus inpatient rehab. Due to weakness and advanced dementia. Discharge Plan: Other Plan to discharge in: 72 Hours - Code Status/Comfort Care Code Status Assessed: Yes Critical Care: No
[2017-12-17] MEDS ORDERED: D50W 25 GM/50 ML SYRINGE IV PRN (14:26)
[2017-12-17] MEDS ORDERED: GLUCAGON 1 MG/VIAL IM PRN (14:26)
[2017-12-17] MEDS: INSULIN -REGULAR HUMAN 50 UNIT/0.5 ML ML SQ SCH ×2 (16:30→21:00)
[2017-12-17] MEDS: TAMSULOSIN 0.4 MG SR CAP PO SCH (21:25)
[2017-12-17] MEDS: ATORVASTATIN 10 MG TAB PO SCH (21:25)
[2017-12-17] MEDS: FINASTERIDE 5 MG TAB PO SCH (21:25)
--- NOTE | 2017-12-18 01:08 | PN ---
Date of Progress Note: 12/17/2017 Time Seen: 2024. Reason: Delirium, Parkinson disease. Interval History: The patient is stable, not having any combative or aggressive behavior currently. It is unclear if he will be well enough to go back to the assisted living facility. Supine blood pr essure remains slightly elevated. Physical Examination: He is awake, alert, still slightly tangential. Pupils reactive. Ocular motion full. [place] full. Extremity strength full. Significant mixed resting and kinetic tremor, left greater than right with cogwheeling and bradykinesia, left greater than right. Reflexes suppressed. Toes downgoing. Impression: 1.Delirium, improving. Continue supportive care. 2.Parkinson disease, problematic but stable. Continue present antiparkinsonian regimen. We will co julian to follow with you. LETICIA Voice ID: [id number] Report ID: [id number]
[2017-12-18 04:45] LABS: BUN Blood Urea Nitrogen 9 mg/dL (7-18); Bicarbonate 29 mmol/L (21-32); Glucose Level 135 mg/dL (74-106); Potassium 3.7 mmol/L (3.5-5.1); Sodium Level 138 mmol/L (136-145)
[2017-12-18] MEDS ORDERED: POTASSIUM CL SA 10 MEQ TAB PO ONE (06:27)
[2017-12-18] MEDS: INSULIN -REGULAR HUMAN 50 UNIT/0.5 ML ML SQ SCH ×4 (07:30→21:00)
[2017-12-18] MEDS: ESCITALOPRAM 20 MG TAB PO SCH (08:43)
[2017-12-18] MEDS: PRAMIPEXOLE 0.25 MG TAB PO SCH ×2 (08:43→22:00)
[2017-12-18] MEDS: LORATADINE 10 MG TAB PO SCH (08:43)
[2017-12-18] MEDS: levoFLOXacin 500 MG TAB PO SCH (08:43)
[2017-12-18] MEDS: CARBIDOPA/LEVODOPA 25/250 TAB PO SCH ×4 (08:44→22:05)
[2017-12-18] MEDS: DOCUSATE NA 100 MG CAP PO SCH ×2 (08:44→22:00)
[2017-12-18] MEDS: CLOPIDOGREL 75 MG TABLET PO SCH (08:44)
[2017-12-18] MEDS: lamoTRIgine 100 MG TAB PO SCH ×2 (08:45→22:00)
[2017-12-18] MEDS: FLUDROCORTISONE 0.1 MG TAB PO SCH (08:45)
--- NOTE | 2017-12-18 14:08 | P.PN ---
Subjective Date of Service: 12/18/17 Primary Care Provider: Clarisse Chief Complaint: Septic shock Patient seen and examined at bedside with RN. Chart reviewed. -no complaints to offer overnight and did well overall. -Working with physical therapy. -Does still appear to be weak -pending placement of this time Review of Systems Unremarkable Physical Examination - Vital Signs Temperature: 97.3 F Blood Pressure: 154/72 Pulse: 80 Respirations: 20 Pulse Ox (%): 91 - Physical Exam General: Alert, Oriented x1, Demented HEENT: Atraumatic, PERRLA, EOMI Neck: Supple, JVD not distended Respiratory: Clear to auscultation bilaterally, Normal air movement Cardiovascular: Regular rate/rhythm, Normal S1 S2 Gastrointestinal: Normal bowel sounds, No tenderness Musculoskeletal: No tenderness Integumentary: No rashes Neurological: Normal speech, Normal tone, Normal affect Lymphatics: No axilla or inguinal lymphadenopathy - Studies Medications List Reviewed: Yes Assessment And Plan - Current Problems (Diagnosis) (1) Sepsis Onset Date: 09/17/17 Current Visit: No Status: Acute Plan: Resovled now. Most likely 2.2 to UTI -urine + for Klebseilla and Blood + for klebseilla -On Levaquin PO at this time Qualifiers: Sepsis type: sepsis due to unspecified organism Qualified Code(s): A41.9 - Sepsis, unspecified organism (2) UTI (urinary tract infection) Onset Date: 12/11/17 Current Visit: Yes Status: Acute Plan: Acute Cystitis -Urine Culture + for Klebisella -Levaquin at this time Qualifiers: Urinary tract infection type: acute cystitis Hematuria presence: without hematuria Qualified Code(s): N30.00 - Acute cystitis without hematuria (3) TAMIKO (acute kidney injury) Onset Date: 12/11/17 Current Visit: Yes Status: Acute Plan: Resoved now (4) Diabetes mellitus Onset Date: 09/17/17 Current Visit: No Status: Chronic Plan: ISS Qualifiers: Diabetes mellitus type: type 2 Diabetes mellitus correction insulin use: without manager long term care use Diabetes mellitus complication status: with unspecified complications Qualified Code(s): E11.8 - Type 2 diabetes mellitus with unspecified complications - Plan Currently awaiting placement at this time. Patient was at an independent living facility however is currently too weak to go back to an independent living. Patient may benefit from intermediate facility versus inpatient rehab. Due to weakness and advanced dementia. Discharge Plan: Other Plan to discharge in: 48 Hours - Code Status/Comfort Care Code Status Assessed: Yes Critical Care: No
[2017-12-18] MEDS: TAMSULOSIN 0.4 MG SR CAP PO SCH (22:00)
[2017-12-18] MEDS: FINASTERIDE 5 MG TAB PO SCH (22:00)
[2017-12-18] MEDS: ATORVASTATIN 10 MG TAB PO SCH (22:00)
[2017-12-19] MEDS ORDERED: LORazepam 2 MG/ML VIAL IM ONE (00:15)
[2017-12-19 04:31] LABS: Absolute Lymphocytes (CBC) 1.1 K/uL (0.7-4.9); Absolute Monocytes 0.2 K/uL (0.1-1.3); Absolute Neutrophil 5.3 K/uL (1.8-8.0); Basophils % 0.4 % (0-1.3); Eosinophils % 1.2 % (0-4.4); Hematocrit 29.9 % (39.6-49.0); Lymphocytes % 16.8 % (15.3-44.8); MCH 33.8 pg (27.0-35.0); MCV 95.1 fL (80-100); MPV 8.1 fL (7.6-11.3); RBC Red Blood Cell Count 3.14 M/uL (4.33-5.43)
[2017-12-19 04:45] LABS: BUN Blood Urea Nitrogen 9 mg/dL (7-18); Bicarbonate 28 mmol/L (21-32); Glucose Level 108 mg/dL (74-106); Potassium 3.1 mmol/L (3.5-5.1); Sodium Level 139 mmol/L (136-145)
[2017-12-19] MEDS ORDERED: ZIPRASIDONE MESYLA 20 MG/VIAL IM ONE (06:30)
[2017-12-19] MEDS ORDERED: WATER FOR INJ,STERILE 10 ML IM PRN (06:30)
[2017-12-19] MEDS: INSULIN -REGULAR HUMAN 50 UNIT/0.5 ML ML SQ SCH ×4 (07:30→21:00)
[2017-12-19] MEDS ORDERED: POTASSIUM 25 MEQ EFFERV TAB PO ONE (09:00)
[2017-12-19] MEDS: levoFLOXacin 500 MG TAB PO SCH (11:20)
[2017-12-19] MEDS: ESCITALOPRAM 20 MG TAB PO SCH (11:20)
[2017-12-19] MEDS: DOCUSATE NA 100 MG CAP PO SCH ×2 (11:21→22:37)
[2017-12-19] MEDS: FLUDROCORTISONE 0.1 MG TAB PO SCH (11:21)
[2017-12-19] MEDS: CLOPIDOGREL 75 MG TABLET PO SCH (11:21)
[2017-12-19] MEDS: LORATADINE 10 MG TAB PO SCH (11:21)
[2017-12-19] MEDS: CARBIDOPA/LEVODOPA 25/250 TAB PO SCH ×4 (11:21→22:39)
[2017-12-19] MEDS: lamoTRIgine 100 MG TAB PO SCH ×2 (11:21→22:38)
[2017-12-19] MEDS: PRAMIPEXOLE 0.25 MG TAB PO SCH ×2 (11:27→22:36)
[2017-12-19] MEDS ORDERED: HALOPERIDOL LACT 5 MG/ML INJ IM PRN (13:04)
--- NOTE | 2017-12-19 13:55 | P.PN ---
Subjective Date of Service: 12/19/17 Primary Care Provider: Clarisse Chief Complaint: Septic shock Patient seen and examined at bedside with RN. Chart reviewed. Pending placement at this time. last night with Agitation, this morning however appears to to sleeping. Review of Systems 10-point ROS is otherwise unremarkable Physical Examination - Vital Signs Temperature: 97.4 F Blood Pressure: 149/71 Pulse: 66 Respirations: 18 Pulse Ox (%): 96 - Physical Exam General: Demented HEENT: Atraumatic, PERRLA, EOMI Neck: Supple, JVD not distended Respiratory: Clear to auscultation bilaterally, Normal air movement Cardiovascular: Regular rate/rhythm, Normal S1 S2 Gastrointestinal: Normal bowel sounds, No tenderness Musculoskeletal: No tenderness Integumentary: No rashes Neurological: Normal speech, Normal tone, Normal affect Lymphatics: No axilla or inguinal lymphadenopathy - Studies Medications List Reviewed: Yes Assessment And Plan - Current Problems (Diagnosis) (1) Sepsis Onset Date: 09/17/17 Current Visit: No Status: Acute Plan: Resovled now. Most likely 2.2 to UTI -urine + for Klebseilla and Blood + for klebseilla -On Levaquin PO at this time Qualifiers: Sepsis type: sepsis due to unspecified organism Qualified Code(s): A41.9 - Sepsis, unspecified organism (2) UTI (urinary tract infection) Onset Date: 12/11/17 Current Visit: Yes Status: Acute Plan: Acute Cystitis -Urine Culture + for Klebisella -Levaquin at this time Qualifiers: Urinary tract infection type: acute cystitis Hematuria presence: without hematuria Qualified Code(s): N30.00 - Acute cystitis without hematuria (3) TAMIKO (acute kidney injury) Onset Date: 12/11/17 Current Visit: Yes Status: Acute Plan: Resoved now (4) Diabetes mellitus Onset Date: 09/17/17 Current Visit: No Status: Chronic Plan: ISS Qualifiers: Diabetes mellitus type: type 2 Diabetes mellitus skilled nursing insulin use: without long wall shear operator use Diabetes mellitus complication status: with unspecified complications Qualified Code(s): E11.8 - Type 2 diabetes mellitus with unspecified complications - Plan Currently awaiting placement at this time. Patient was at an independent living facility however is currently too weak to go back to an independent living. Patient may benefit from [facility] facility versus inpatient rehab. Currently pending placement. Family also Considering other options. Will f.u Discharge Plan: Other Plan to discharge in: 48 Hours - Code Status/Comfort Care Code Status Assessed: Yes Critical Care: No
--- NOTE | 2017-12-19 14:37 | CON ---
History: A 77-year-old gentleman admitted with urosepsis to the ICU, has a history of asthma, diabetes, and Parkinson disease. He has been having recurrent urinary tract infections. He tells me that he has some lower urinary tract symptomatology and 2 UTIs this year. He has a history of enlarged prostate. He has nocturia x1, frequency, decreased force of stream, postvoid dribbling, hesitancy, and history of hematuria. He has seen some doctor in [place] in the past. He apparently lives in a fpc now. Allergies: NO KNOWN DRUG ALLERGIES. Home Medications: Plavix, Lexapro, Lamictal, Lipitor, Claritin, metformin, ___ , Super Beta prostate, tamsulosin, acyclovir, Dulcolax, carbidopa/levodopa for Parkinson disease, fludrocortisone acetate, glimepiride, guaifenesin, Lorazepam , lactulose, promethazine, Mirapex, Augmentin. Past Medical History: Diabetic yes, orthostatic hypotension, recurrent syncope , [id number] diabetes mellitus, hyperlipidemia, Parkinson disease, BPH, tonsillectomy. Family History: Father had GI disease, coronary thrombosis. Sister had cancer. Social History: No smoking. No drinking. Some caffeine use, yes. Review of Systems: A 10-point review of systems otherwise unremarkable as mentioned above. Physical Examination: Vital Signs: The patient was afebrile, stable, lying in bed, slow speaker. General: Alert, oriented. HEENT: Atraumatic, normocephalic. Neck: Supple. Respiratory: Clear. Heart: S1-S2. Gastrointestinal: Normal bowel sounds. He has a Galindo catheter draining light pink urine, lots of volume today. Skin: No rashes. : Both testicles are descended. Enlarged prostate gland maybe 60-70 g. No nodules palpable. Imaging And Laboratory Studies: He had a CT scan showing bilateral hydroureteronephrosis on 12/15/2017. Galindo catheter was in the prostatic urethra. Prostate measures 8.5 x 7.1 cm and had a bilateral hydroureteronephrosis most likely obstructive uropathy. He had a Galindo catheter placed, it was removed, explains the retention, they are straight cathing him. He pulled out his Galindo accidentally last night and then I was called and had emergency catheter placed in his obstructive uropathy home. Laboratory Data: CBC; white count 6.7, H and H 10.6 and 30, platelet count 173. Coagulation; PT 15.8, INR 1.3, PTT 28.9. Chemistry shows extraordinary creatinine 0.80. GFR still greater than 90 mEq. UA shows pH 6.0, specific gravity 1.015, blood 2+, nitrite negative, esterase trace. Assessment: Obstructive uropathy, most likely from prostate. He has been on Super Beta prostate, tamsulosin, and still failing voiding trial. What he needs is a TURP. First, we will need to rule out prostate cancer, so he will need a PSA, but most likely the PSA will be kind of high right now due to the retention. He had a PSA of 4.3 back in 2012, I have not seen 1 since. He had another 1 ordered, and I would not be surprised if it is slightly elevated. JOE/IRINA Voice ID: [id number] Report ID: [id number] BRYON
[2017-12-19 15:13] VITALS: O2SAT 97
[2017-12-19] MEDS: ATORVASTATIN 10 MG TAB PO SCH (22:35)
[2017-12-19] MEDS: TAMSULOSIN 0.4 MG SR CAP PO SCH (22:37)
[2017-12-19] MEDS: FINASTERIDE 5 MG TAB PO SCH (22:37)
[2017-12-20 04:26] VITALS: BMI 29.8
[2017-12-20] MEDS: INSULIN -REGULAR HUMAN 50 UNIT/0.5 ML ML SQ SCH ×2 (07:30→11:30)
[2017-12-20] MEDS: ESCITALOPRAM 20 MG TAB PO SCH (09:00)
[2017-12-20] MEDS: LORATADINE 10 MG TAB PO SCH (09:00)
[2017-12-20] MEDS: PRAMIPEXOLE 0.25 MG TAB PO SCH (09:00)
[2017-12-20] MEDS: lamoTRIgine 100 MG TAB PO SCH (09:00)
[2017-12-20] MEDS: DOCUSATE NA 100 MG CAP PO SCH (09:00)
[2017-12-20] MEDS: CLOPIDOGREL 75 MG TABLET PO SCH (09:00)
[2017-12-20] MEDS: levoFLOXacin 500 MG TAB PO SCH (09:00)
[2017-12-20] MEDS: FLUDROCORTISONE 0.1 MG TAB PO SCH (09:00)
[2017-12-20] MEDS: CARBIDOPA/LEVODOPA 25/250 TAB PO SCH ×2 (09:00→14:12)
[2017-12-20 11:18] LABS: Potassium 3.2 mmol/L (3.5-5.1)
--- NOTE | 2017-12-20 14:45 | P.DS ---
Admission Date: 12/10/17 Discharge Date: 12/20/17 Primary Care Provider: Clarisse Disposition: HOSPICE-MEDICAL FACILITY Discharge Condition: GOOD Reason for Admission: Septic shock Consultations: Neurology - Problems (1) Sepsis Onset Date: 09/17/17 Status: Acute Qualifiers: Sepsis type: sepsis due to unspecified organism Qualified Code(s): A41.9 - Sepsis, unspecified organism (2) UTI (urinary tract infection) Onset Date: 12/11/17 Status: Acute Qualifiers: Urinary tract infection type: acute cystitis Hematuria presence: without hematuria Qualified Code(s): N30.00 - Acute cystitis without hematuria (3) TAMIKO (acute kidney injury) Onset Date: 12/11/17 Status: Acute (4) Diabetes mellitus Onset Date: 09/17/17 Status: Chronic Qualifiers: Diabetes mellitus type: type 2 Diabetes mellitus snf insulin use: 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 Most of the history was collected from the physician in the ER. Patient was that the [facility] assisted-living facility where he was found to be altered and thus was brought over to the ER. At the nursing facility patient also had some fever and was complaining of having some chills at that time. Patient has had similar episodes in the past were he was admitted to the hospital for UTI and had bacteremia at that time and thus was started on IV antibiotics and was discharged home oral once he had resolution of his symptoms. [facility] denied having any chest pain shortness of breath or any other associated symptoms at this time. In the ER upon examination patient was alert but oriented x1. Patient appeared to be acutely ill and this would be admitted to the hospital for severe septic shock. Hospital Course: Overall during the hospital stay patient remained stable without any complication Patient was initially admitted to the hospital for sepsis most likely secondary to urinary tract infection along with bacteremia. Patient's urine culture and blood culture were positive for Klebsiella. Patient was admitted to the hospital for toxic encephalopathy as well secondary to UTI. Patient sepsis recovered after he was started on IV antibiotics here in the hospital and then was switched over to oral antibiotics once the cultures were positive for Klebsiella. Patient did well overall in terms of sepsis however his mentation remained altered while here in the hospital. Patient at baseline was alert and oriented x3 and was able to live independently at [facility] before coming to the hospital. However while here in the hospital patient was only alert and oriented times 2. Patient did have Parkinson's dementia as underline and this could be his new baseline after having severe sepsis. Patient's family members were notified and the decision was made to send patient to long-term. Clinicals were sent over to long-term and patient was accepted however as patient got agitated here in the hospital and required a sitter long-term denied the transfer. At that time patient was referred to hospice for hospice care for AV end-stage Parkinson's dementia. Patient was accepted by hospice and then was sent back to [facility] for further care under hospice Vital Signs/Physical Exam: Temp Pulse Resp BP Pulse Ox 98.1 F 68 16 159/76 H 97 12/20/17 04:00 12/20/17 04:00 12/20/17 04:00 12/20/17 04:00 12/20/17 04:00 General: Alert, In no apparent distress, Oriented x1 HEENT: Atraumatic, PERRLA, EOMI Neck: Supple, JVD not distended Respiratory: Clear to auscultation bilaterally, Normal air movement Cardiovascular: Regular rate/rhythm, Normal S1 S2 Gastrointestinal: Normal bowel sounds, No tenderness Musculoskeletal: No tenderness Integumentary: No rashes Neurological: Normal speech, Normal tone, Normal affect Lymphatics: No axilla or inguinal lymphadenopathy Laboratory Data at Discharge: WBC 6.7 K/uL (4.3-10.9) D 12/19/17 04:04 Hgb 10.6 g/dL (13.6-17.9) L 12/19/17 04:04 Hct 29.9 % (39.6-49.0) L 12/19/17 04:04 Plt Count 173 K/uL (152-406) D 12/19/17 04:04 PT 15.8 SECONDS (9.5-12.5) H 12/10/17 12:30 INR 1.34 12/10/17 12:30 APTT 28.9 SECONDS (24.3-36.9) 12/10/17 12:30 Sodium 141 mmol/L (136-145) 12/20/17 06:54 Potassium 3.2 mmol/L (3.5-5.1) L 12/20/17 06:54 BUN 9 mg/dL (7-18) 12/20/17 06:54 Creatinine 0.90 mg/dL (0.55-1.3) 12/20/17 06:54 Glucose 112 mg/dL (74-106) H 12/20/17 06:54 Phosphorus 2.7 mg/dL (2.5-4.9) 12/15/17 04:05 Magnesium 1.9 mg/dL (1.8-2.4) 12/20/17 06:54 Total Bilirubin 0.8 mg/dL (0.2-1.0) 12/15/17 04:05 AST 27 U/L (15-37) 12/15/17 04:05 ALT 9 U/L (12-78) L 12/15/17 04:05 Alkaline Phosphatase 70 U/L (45-117) 12/15/17 04:05 Home Medications: Atorvastatin Calcium 10 mg PO BEDTIME 12/11/17 Bisacodyl 10 mg RC DAILYPRN PRN 12/11/17 Carbidopa/Levodopa 25-250 [Sinemet 25-250*] 1 tab PO QID 12/11/17 Clopidogrel Bisulfate [Plavix] 75 mg PO DAILY 12/11/17 Escitalopram [Lexapro*] 20 mg PO DAILY 12/11/17 Fludrocortisone [Florinef *] 0.1 mg PO DAILY 12/11/17 Glimepiride 2 mg PO DAILY 12/11/17 Guaifenesin/Dextromethorphan [Tussin Dm Syrup] 10 ml PO Q6HR PRN 12/11/17 LORazepam [Ativan*] 0.5 mg PO TID PRN 12/11/17 Lactulose 10 gm PO DAILYPRN PRN 12/11/17 Loratadine [Claritin*] 10 mg PO DAILY 12/11/17 Metformin HCl 1,000 mg PO BID 12/11/17 Midodrine HCl [Proamatine*] 15 mg PO TID 12/11/17 Polyethylene Glycol 3350 17 gm PO M,W,F 12/11/17 Pramipexole [Mirapex*] 0.5 mg PO BID 12/11/17 Tamsulosin HCl 0.4 mg PO BEDTIME 12/11/17 lamoTRIgine [Lamotrigine] 200 mg PO BID 12/11/17 levoFLOXacin [Levaquin*] 500 mg PO DAILY #14 tab 12/20/17 New Medications: levoFLOXacin [Levaquin*] 500 mg PO DAILY #14 tab Diet: Regular Activity: Ad fredy Followup: Alla Ying MD [ACTIVE - CAN ADMIT] - 1 Week (follow up in one week)
[2017-12-20 15:01] VITALS: BP 138/61; TEMP 98.9
--- NOTE | 2017-12-20 18:36 | PN ---
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 Currently, his creatinine is stable at 0.9, the high was 2.0 on 12/11/2017. He is on Levaquin antibiotic, and tamsulosin for his prostate. Interestingly, he had a PSA done was 63, but his urine culture grew Klebsiella pneumoniae and it is sensitive to Levaquin whi ch he is on as well as Bactrim and Cipro. Plan will be to continue Galindo catheter drainage, continue antibiotics. He will need a voiding trial at a later time and repeat PSA at a later time. JOE/IRINA Voice ID: [id number] Report ID: [id number]
== END 2017-12-20 14:29 | disposition hospice, inpatient (51) | DRG 871 ==
LOC: ER 11:59 → ERHOLD 15:55 → 2ND 17:48 → 3RD-ICU 12-11 04:43 → 4TH 12-13 16:55
PROVIDERS: ADMIT Family Medicine; ATTEND Family Medicine
PROC: 0JHN0XZ Insertion of Tunneled Vascular Access Device into Right Lower Leg Subcutaneous Tissue and Fascia, Open Approach (ICD-10-PCS; principal; 2017-12-11)
PROC: 06HM33Z Insertion of Infusion Device into Right Femoral Vein, Percutaneous Approach (ICD-10-PCS; 2017-12-11)
DX: A41.89 Other specified sepsis (principal); R65.21 Severe sepsis with septic shock; N17.9 Acute kidney failure, unspecified; N30.00 Acute cystitis without hematuria; J45.909 Unspecified asthma, uncomplicated; E11.9 Type 2 diabetes mellitus without complications; G20 Parkinson's disease; E78.5 Hyperlipidemia, unspecified; F03.90 Unspecified dementia, unspecified severity, without behavioral disturbance, psychotic disturbance, mood disturbance, and anxiety; R41.0 Disorientation, unspecified; N13.9 Obstructive and reflux uropathy, unspecified
CPT/HCPCS: 36415; 51702; 70450; 71045; 74018; 74176; 80048; 80053; 80076; 80202; 81003; 81015; 82550; 82553; 82962; 83605; 83735; 83880; 84100; 84132; 84145; 84443; 84484; 85025; 85610; 85730; 87040; 87077; 87086; 87088; 87186; 87205; 93005; 93307; 96361; 96365; 96366; 96368; 96375; 97163; 99285; G0103; J0696; J1630; J1650; J2543; J3370; J3475; J3486; J7030; J7060